=== PATIENT | male | born 1955 | race Caucasian/White ===

== ENCOUNTER 2018-01-05 17:35 | Inpatient (IN) ==
[2018-01-05] MEDS ORDERED: Nitroglycerin Drip Premix 50 MG/250 ML BOTTLE IV.CONT PRN (17:59)
[2018-01-05 18:07] LABS: Baso # (Auto) 0.1 th/mm3 (0.0-0.2); Baso % (Auto) 0.7 % (0.0-2.0); Eos # (Auto) 0.4 th/mm3 (0.0-0.4); Eos % (Auto) 3.8 % (0.0-4.0); Hematocrit 47.6 % (39.0-51.0); Hemoglobin 15.4 gm/dL (13.0-17.0); Lymph # (Auto) 2.2 th/mm3 (1.0-4.8); Lymph % (Auto) 20.6 % (9.0-44.0); Mean Corpuscular HGB Conc 32.4 % (32.0-36.0); Mean Corpuscular Hemoglobin 29.8 pg (27.0-34.0); Mean Corpuscular Volume 92.1 fL (80.0-100.0); Mean Platelet Volume 8.2 fL (7.0-11.0); Mono # (Auto) 0.9 th/mm3 (0.0-0.9); Mono % (Auto) 8.8 % (0.0-8.0); Neut # (Auto) 7.2 th/mm3 (1.8-7.7); Neut % (Auto) 66.1 % (16.0-70.0); Platelet Count 213 th/mm3 (150-450); Red Blood Count 5.17 mil/mm3 (4.50-5.90); Red Cell Distribution Width 13.7 % (11.6-17.2); White Blood Count 10.8 th/mm3 (4.0-11.0)
[2018-01-05 18:09] LABS: VBG Base Excess -4.2 mmol/L (-2-2); VBG Blood Gas Oxygen Content 15.4 Vol % (9.0-17.0); VBG PCO2 49 mmHG (44-48); VBG PH 7.27 (7.360-7.400); VBG PO2 46 mmHG (35-40)
[2018-01-05] MEDS ORDERED: Amiodarone Inj 150 MG in Dextrose 5% in Water Inj 97 ML IV.SIG ONE ×2 (18:10)
--- NOTE | 2018-01-05 18:10 | ED ---
HPI General Chief Complaint: Chest Pain Stated Complaint: chest pain [id number] Time Seen by Provider: 01/05/18 17:42 Source: patient Mode of arrival: ambulatory Limitations: no limitations History of Present Illness HPI narrative: The patient is a 62-year-old male who presents to the emergency department via private vehicle for chest pain. The patient states he was eating earlier today, approximately 1 hour prior to arrival when he developed chest pain. The chest pain was substernal, moderate to severe, initially 10/10, now 8/10, and radiating to the upper extremities bilaterally as well as the back. The patient describes the pain as gripping, pressure, and heaviness. The patient also had nausea, vomiting, diaphoresis, and lightheadedness. He denied any shortness of breath. The patient denies any known history of coronary artery disease but does have a history of end-stage renal disease on peritoneal dialysis as well as hypertension, hyperlipidemia, tobacco use, and borderline diabetes. The patient states he has never had a cardiac catheterization or stress test in the past. He denies any exertional component to his symptoms. MD complaint: chest pain Complete Quality Measures for STEMI Alert Patients STEMI Alert: Yes Onset (ago): hour(s) Time: 17:00 Duration: constant Onset: after eating Pain location: substernal Severity: severe Severity scale (1-10): 8 Quality: tightness and heaviness Pain radiation: RUE and LUE Relieving factors: nothing Exacerbating factors: nothing Context: other (After eating) Associated symptoms: nausea, vomiting and diaphoresis Treatments prior to arrival chest pain: none Related Data Allergies Allergy/AdvReac Type Severity Reaction Status Date / Time penicillin G Allergy Mild Sneezing Verified 01/05/18 17:44 tree and shrub pollen AdvReac Intermediate SNEEZING Verified 01/05/18 17:44 Review of Systems Except as stated in HPI: all other systems reviewed are negative ENT Reports dizziness Cardiovascular Reports chest pain, Reports chest pain at rest, Reports lightheadedness and Denies dyspnea Respiratory Denies dyspnea Gastrointestinal Denies abdominal pain, Reports nausea and Reports vomiting Neurologic Reports dizziness PMFSH Medical History Medical History Peritoneal dialysis catheter in place (Acute) Hypertension (Acute) Peritoneal dialysis status (Acute) Social History Social History Substance History: No History of Abuse Second Hand Smoke Exposure: No Smoking Status: Heavy tobacco smoker Tobacco Type: Cigarettes How Often Do You Have a Drink Containing Alcohol: Never Recent Travel in [facility] within the Last 8 Weeks: No Immunization History Tetanus Immunization: Unsure Hx Influenza Vaccine This Season: No Exam Narrative Exam Narrative: GENERAL: 62-year-old male who appears his stated age and appears in moderate discomfort. SKIN: Focused skin assessment warm/dry. HEAD: Atraumatic. Normocephalic. EYES: Pupils equal and round. ENT: No nasal bleeding or discharge. Mucous membranes pink and moist. NECK: Trachea midline. No JVD. CARDIOVASCULAR: Regular rate and rhythm. No murmur appreciated. RESPIRATORY: No accessory muscle use. Clear to auscultation. Breath sounds equal bilaterally. GASTROINTESTINAL: Abdomen soft, non-tender, nondistended. Peritoneal dialysis catheter in place. MUSCULOSKELETAL: No obvious deformities. No clubbing. No cyanosis. No edema. NEUROLOGICAL: Awake and alert. No obvious cranial nerve deficits. Motor grossly within normal limits. Normal speech. Nonfocal. PSYCHIATRIC: Appropriate mood and affect; insight and judgment normal. Course Reevaluation(s) Reevaluation #1: I discussed the patient with the on-call [facility] blog writer, Dr. Beyer, who agrees with transfer to [facility]. Time: 18:10 Initial Documented Vital Signs Temperature 98 F 01/05/18 17:41 Pulse Rate 60 01/05/18 17:41 Respiratory Rate 18 01/05/18 17:41 Blood Pressure 171/106 H 01/05/18 17:41 Pulse Oximetry 94 L 01/05/18 17:41 Last Documented Vital Signs Temperature 98 F 01/05/18 17:41 Pulse Rate 60 01/05/18 17:41 Respiratory Rate 18 01/05/18 17:41 Blood Pressure 171/106 H 01/05/18 17:41 Pulse Oximetry 94 L 01/05/18 17:41 Critical Care Time Critical Care Time: Yes (50) Total Critical Care Time: 50 Attestation: Aggregate critical care time was 50 minutes. Time to perform other separately billable procedures was not included in the critical care time. My time did not include minutes spent treating any other patients simultaneously or on activities that did not directly contribute to the patient's treatment. The services I provided to this patient were to treat and/or prevent clinically significant deterioration that could result in: Anoxia, hypoxia, arrhythmia, sudden , STEMI, . I provided critical care services requiring my management, as noted below: Chart data review, documentation time, medication orders and management, vital sign assessments/reviewing monitor data, ordering and reviewing lab tests, ordering and interpreting/reviewing x-rays and diagnostic studies, care of the patient and discussion of the patient with the admitting physicians. Medical Decision Making MDM Narrative Medical decision making narrative: IV was established, labs are drawn and sent, the patient was placed on cardiac telemetry monitoring and continuous pulse oximetry monitoring. EKG was ordered and interpreted. Always have a discussion with the patient he suddenly went unconscious, when I looked at the telemetry monitoring the patient was in ventricular tachycardia. Immediate CPR was instituted, 2 large-bore IVs were established, and CPR was performed for 2 minutes. The patient was then defibrillated at 200 J and CPR was started once again. The patient then awakened after defibrillation and CPR. 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 Repeat EKG was performed which now revealed ST elevations in lead III and aVF with significant depressions in lead V2 and V3, EKG was inverted, it appears to have significant ST elevations in V2 and V3, possibly posterior NE from RCA posterior dominant system. 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 I discussed the patient with the on-call [facility] blog writer, Dr. Beyer, who accepts the patient in transfer. The patient was transferred to [facility] emergently via EMS to go straight to cardiac catheterization room. I discussed the findings with the patient and his significant other, Linda, at bedside and in the conference room. Differential Diagnosis Differential Diagnosis: Differential diagnosis includes acute coronary syndrome , STEMI, arrhythmia, ventricular tachycardia, ventricular fibrillation, cardia myopathy, hypokalemia, hyperkalemia, hypomagnesemia, O abnormality. Lab Data Result diagrams: 01/05/18 17:45 01/05/18 17:45 Lab Results 01/05/18 01/05/18 01/05/18 Range/Units 17:45 17:45 17:45 CBC w Diff Auto diff final WBC 10.8 (4.0-11.0) th/mm3 RBC 5.17 (4.50-5.90) mil/mm3 Hgb 15.4 (13.0-17.0) gm/dL Hct 47.6 (39.0-51.0) % MCV 92.1 (80.0-100.0) fL MCH 29.8 (27.0-34.0) pg MCHC 32.4 (32.0-36.0) % RDW 13.7 (11.6-17.2) % Plt Count 213 (150-450) th/mm3 MPV 8.2 (7.0-11.0) fL Neut % (Auto) 66.1 (16.0-70.0) % Lymph % (Auto) 20.6 (9.0-44.0) % [place] % (Auto) 8.8 H (0.0-8.0) % Eos % (Auto) 3.8 (0.0-4.0) % Baso % (Auto) 0.7 (0.0-2.0) % Neut # (Auto) 7.2 (1.8-7.7) th/mm3 Lymph # (Auto) 2.2 (1.0-4.8) th/mm3 [place] # (Auto) 0.9 (0.0-0.9) th/mm3 Eos # (Auto) 0.4 (0.0-0.4) th/mm3 Baso # (Auto) 0.1 (0.0-0.2) th/mm3 WBC Differential . Differential Comment . PT 10.0 (9.8-11.6) sec INR 1.0 Ratio APTT 27.7 (24.3-30.1) sec Puncture Site Patient Temperature VBG pH (7.360-7.400) VBG pCO2 (44-48) mmHG VBG pO2 (35-40) mmHG VBG HCO3 (22-26) mmol/L VBG O2 Saturation (70-76) % VBG O2 Content (9.0-17.0) Vol % VBG Base Excess (-2-2) mmol/L VBG Carboxyhemoglobin (0-4) % VBG Methemoglobin (0-2) % Hemoglobin (12.0-16.0) G/DL O2 Delivery Device Inspired O2 % Critical Value Sodium 137 (136-145) meq/L Potassium 3.5 (3.5-5.1) meq/L Chloride 101 (98-107) meq/L Carbon Dioxide 24.2 (21.0-32.0) meq/L Anion Gap 12 (5-15) meq/L BUN 74 H (7-18) mg/dL Creatinine 9.90 H (0.60-1.30) mg/dL Estimated GFR 5 L (>89) mL/min Random Glucose 92 (74-106) mg/dL Calcium 9.7 (8.5-10.1) mg/dL Phosphorus 3.8 (2.5-4.9) mg/dL Magnesium 2.5 (1.5-2.5) mg/dL Total Bilirubin 0.4 (0.2-1.0) mg/dL AST 14 L (15-37) U/L ALT 24 (12-78) U/L Alkaline Phosphatase 68 (45-117) U/L Total Creatine Kinase 202 (39-308) U/L Troponin I 0.10 H (0.02-0.05) ng/mL Total Protein 8.1 (6.4-8.2) g/dL Albumin 3.6 (3.4-5.0) g/dL 01/05/18 Range/Units 18:05 CBC w Diff WBC (4.0-11.0) th/mm3 RBC (4.50-5.90) mil/mm3 Hgb (13.0-17.0) gm/dL Hct (39.0-51.0) % MCV (80.0-100.0) fL MCH (27.0-34.0) pg MCHC (32.0-36.0) % RDW (11.6-17.2) % Plt Count (150-450) th/mm3 MPV (7.0-11.0) fL Neut % (Auto) (16.0-70.0) % Lymph % (Auto) (9.0-44.0) % [place] % (Auto) (0.0-8.0) % Eos % (Auto) (0.0-4.0) % Baso % (Auto) (0.0-2.0) % Neut # (Auto) (1.8-7.7) th/mm3 Lymph # (Auto) (1.0-4.8) th/mm3 [place] # (Auto) (0.0-0.9) th/mm3 Eos # (Auto) (0.0-0.4) th/mm3 Baso # (Auto) (0.0-0.2) th/mm3 WBC Differential Differential Comment PT (9.8-11.6) sec INR Ratio APTT (24.3-30.1) sec Puncture Site Ac Patient Temperature 98.6 VBG pH 7.27 L* (7.360-7.400) VBG pCO2 49 H (44-48) mmHG VBG pO2 46 H (35-40) mmHG VBG HCO3 22 (22-26) mmol/L VBG O2 Saturation 74 (70-76) % VBG O2 Content 15.4 (9.0-17.0) Vol % VBG Base Excess -4.2 L (-2-2) mmol/L VBG Carboxyhemoglobin 2.4 (0-4) % VBG Methemoglobin 1.5 (0-2) % Hemoglobin 14.9 (12.0-16.0) G/DL O2 Delivery Device Non rebreather Inspired O2 100 % Critical Value Yes Sodium (136-145) meq/L Potassium (3.5-5.1) meq/L Chloride (98-107) meq/L Carbon Dioxide (21.0-32.0) meq/L Anion Gap (5-15) meq/L BUN (7-18) mg/dL Creatinine (0.60-1.30) mg/dL Estimated GFR (>89) mL/min Random Glucose (74-106) mg/dL Calcium (8.5-10.1) mg/dL Phosphorus (2.5-4.9) mg/dL Magnesium (1.5-2.5) mg/dL Total Bilirubin (0.2-1.0) mg/dL AST (15-37) U/L ALT (12-78) U/L Alkaline Phosphatase (45-117) U/L Total Creatine Kinase (39-308) U/L Troponin I (0.02-0.05) ng/mL Total Protein (6.4-8.2) g/dL Albumin (3.4-5.0) g/dL Imaging Data Attestation: I personally reviewed and interpreted this imaging study as follows : My impression: No acute cardiopulmonary disease. ECG Data EKG Prior to Arrival: No Attestation: I personally reviewed and interpreted this ECG as follows: Interpretation: EKG #1 reveals normal sinus rhythm with a rate of 63. ND slightly prolonged at 240 ms. T-wave changes noted in lead I and aVL. EKG #[address] elevations in lead III and aVF with marked depression of V2 and V3 and inverted T waves in 1 and aVL. When EKG is inverted, it appears that V2 and V3 are elevated, possibly posterior NE, RCA dominant system. Discharge Plan Discharge Disposition Patient Disposition: 30 Still Patient Discharge Condition Condition: Serious Discharge Details Diagnosis: ST elevation myocardial infarction (STEMI), Arrhythmia, ventricular Physicians Team ED Provider: Yousif Seymour Primary Care Provider: UNKNOWN, Discharge Instructions Patient Printed Instructions: Chest Pain (ED) Status ED Status: With Doctor
[2018-01-05 18:14] LABS: Chloride 101 meq/L (98-107); Potassium 3.5 meq/L (3.5-5.1); Sodium 137 meq/L (136-145)
[2018-01-05] MEDS ORDERED: Amiodarone Inj 450 MG in Sodium Chlor 0.9% Inj 241 ML IV.CONT PRN (18:15)
[2018-01-05 18:18] LABS: Albumin 3.6 g/dL (3.4-5.0); Anion Gap 12 meq/L (5-15); Blood Urea Nitrogen 74 mg/dL (7-18); Calcium 9.7 mg/dL (8.5-10.1); Carbon Dioxide 24.2 meq/L (21.0-32.0); Glucose,Random 92 mg/dL (74-106); Magnesium 2.5 mg/dL (1.5-2.5)
[2018-01-05] MEDS ORDERED: Heparin 10,000 UNITS/10 ML Vial (for IV use) IV.PUSH STA (18:18)
[2018-01-05 18:20] LABS: Activated Partial Thrombo Time 27.7 sec (24.3-30.1)
[2018-01-05 18:21] LABS: Alanine Aminotransferase 24 U/L (12-78); Aspartate Aminotransferase 14 U/L (15-37); Glomerular Filtration Rate 5 mL/min (>89); Phosphorus 3.8 mg/dL (2.5-4.9)
[2018-01-05 18:23] LABS: Total Protein 8.1 g/dL (6.4-8.2)
[2018-01-05 18:24] LABS: Alkaline Phosphatase 68 U/L (45-117); Creatine Kinase 202 U/L (39-308)
[2018-01-05] MEDS ORDERED: Heparin 10,000 UNITS/10 ML Vial (for IV use) ONE (18:35)
[2018-01-05] MEDS ORDERED: Heparin/NS PF Inj 1,000 ML ONE (18:35)
[2018-01-05 18:36] LABS: Creatine Kinase MB 6.4 ng/mL (0.5-3.6)
[2018-01-05] MEDS ORDERED: fentaNYL Citrate Inj 100 MCG/2 ML Ampul ONE (18:42)
--- NOTE | 2018-01-05 18:46 | XR ---
EXAM DATE: 01/05/2018 6:19 PM EDT AGE/SEX: 62 years / Male INDICATIONS: Stemi alert CLINICAL DATA: This is the patient's initial encounter. Patient reports that signs and symptoms have been present for 1 day and indicates a pain score of 10/10. MEDICAL/SURGICAL HISTORY: None. None. COMPARISON: [facility], CHEST SINGLE AP, 11/11/2014. . FINDINGS: A single AP view of the chest demonstrates the lungs to be symmetrically aerated without evidence of mass, infiltrate or effusion. Mild basilar atelectasis. The cardiomediastinal contours are mildly pro minent. Osseous structures are intact. CONCLUSION: Mild basilar atelectasis. Heart size mildly prominent. No effusion or pneumothorax. Electronically signed by: Ladarius Haile MD 01/05/2018 6:45 PM EDT
[2018-01-05] MEDS ORDERED: Bisacodyl 10 MG Supp RECTAL PRN ×2 (20:31→21:00)
--- NOTE | 2018-01-05 20:36 | CATHPROC ---
[employer] HIS Report Study Information Study Number Admission Scheduled Start Study Start [id number] Jan 05 2018 5:35PM 01/05/2018 Jan 05 2018 6:52PM [place] Service Cardiac Catheterization Admit Source Facility Department Emergency department [facility] Physician and Clinical Staff Initial Darren Rose Insulation Board Coater Operator Boy Brennan,RN Insulation Board Coater Operator Karyn Kowalski,RT(R) (BS) Insulation Board Coater Operator Harriet Chowdhury RN Other Lawler, Barbara, RN Recorder Anali Contreras BSN Scrub Lukas Rowley RCIS(BS) Procedures Performed Procedure Location (Site) Vessel Name Coronary Angiograms LCA Left Coronary Coronary Angiograms RCA Right Coronary Drug Eluting Inflatio CIRC Prox CIRC Drug Eluting Inflatio LAD Prox Left Coronary L Heart Cath PTCA CIRC Prox CIRC PTCA LAD Prox Left Coronary Wire insertion Radial (right) Radial Art. Equipment Time Bench Assembler Operator Description Size Mfg Part Number Used/Scraped COPILOT VALVE, BLEEDBACK [id number] 19:13 [employer] Used CONTROL *[id number] WIRE, BALANCE MIDDLEWEIGHT [id number] 19:19 [employer] 190CM Used 190CM *[id number] TRANSDUCER, TRUWAVE [id number] 19:02 BYERS NUÑEZ * Used W/STOCKCOCK *[id number] *[id number] 19:02 [employer] BLANKET,WARM AIR CCL * Used *[id number] 19:02 [employer] PACK, CCL CUSTOM * Used *[id number] 19:02 [employer] SUPPORT, ARTERIAL ADULT [id number] *[id number] Used [id number] 19:20 [employer] BALLOON, 2.0 X 15MM EUPHORA 15MM Used *[id number] BALLOON, 2.5 X 12MM NC [id number] 19:41 MEDTR[employer] 12MM Used EUPHORA *[id number] 19:24 [employer] BALLOON, 2.5 X 15MM EUPHORA 15MM Used *[id number] BALLOON, 2.75 X 20MM NC [id number] 19:37 MEDTRONIC 20MM Used EUPHORA *[id number] BALLOON, 3.25 X 15MM NC [id number] 19:59 [employer]IC 15MM Used EUPHORA *[id number] 19:03 [employer]IC JL 3.5 DXTERITY CATHETER FR 5 Used *[id number] 19:03 [employer]TR[employer]IC JR 4.0 DXTERITY CATHETER FR 5 Used *[id number] 19:34 [employer]TR[employer]IC STENT, 2.5 34MM CORDELIA 2.5 34MM Used *[id number] 19:32 MEDTR[employer]IC STENT, 2.5 38MM CORDELIA 2.5 38MM [id number] Used [id number] 19:53 [employer]IC STENT, 3.0 22MM CORDELIA 3.0 22MM Used *[id number] 19:13 Proficiency 30 JINNY INDEFLATOR Used *[id number] BAND, RADIAL COMPRESSION TR [id number] 20:13 Proficiency 24CM Used SHORT 24 *[id number] 19:02 Proficiency WIRE, EXCHANGE 260CM 3MMJ 260CM Used *[id number] 19:02 NAMIC MANIFOLD, 4 PORT * Used *[id number] 19:02 NYCOMED OMNIPAQUE, 350 MG, 150ML 150ML [id number] Used 20:08 NYCOMED OMNIPAQUE, 350 MG, 150ML 150ML [id number] Used SHEATH, FR6 TRANSRADIAL [id number] 19:02 [employer]oK[employer] MEDICAL FR 6 Used SLENDER 10CM *[id number] Equipment Model, Serial, Lot Number and Expiration Data Description Model Number Serial Number Lot Number Expiration Date BALLOON, 2.5 X 12MM [place] [id number] 07-14-2019 EUPHORA STENT, 2.5 34MM CORDELIA [id number] 08-08-2019 STENT, 2.5 38MM CORDELIA [id number] 09-03-2019 STENT, 3.0 22MM CORDELIA [id number] 07-03-2019 History: Current Medications Medication Dosage/Unit Route Frequency Last Date/Time Taken ASA 405 mg History: Allergies Allergy Reaction penicillin G Sneezing tree and shrub pollen SNEEZING History: Risk Factors Family History of Hypertension Dyslipidemia Previous MO Previous Heart Failure Premature CAD Yes Yes Yes No No Prior Valve Prior PCI Prior CABG Surgery No No No Cerebrovascular Peripheral Artery Chronic Lung On Dialysis Diabetes Disease Disease Disease Yes Yes No Yes No History: Symptoms/Diagnosis Selection Items Chest pain History: Other Current Smoker Method Packs a Day Years Used Pack Years Yes Cigarettes 1 20 20 Labs Hgb (g/dl) Hct (%) WBC (l/cumm) Platelets (thousands) 11.60-17.00 35.00-51.00 4.00-11.00 150.00-450.00 15.4 47.6 10.8 213 Glucose (mg/dl) BUN (mg/dl) Creatinine (mg/dl) BUN:Creatinine (1:x) 74.00-106.00 7.00-18.00 0.50-1.30 10.00-20.00 97 14 9.9 1.4 Na (meq/l) K (meq/l) 136.00-145.00 3.50-5.10 137 3.5 INR (PTT:PT) 0.90-1.10 1 Troponin I (ng/ml) CPK (u/l) CPK-MB (ng/ML) 0.02-0.05 26.00-308.00 0.50-3.60 0.1 202 6.4 Medication Medication Total Dose (Bolus/Oral) Medication Total Dosage/Unit 1% XYLOCAINE 5 mL BRILINTA 180 mg FENTANYL 100 mcg HEPARIN 5000 units NTG (IC) 350 mcg RADIAL COCKTAIL 5 mL (Bolus) VERSED 4 mg Medications (Bolus/Oral) Medication Time Given Dosage/Unit Administered By Reason VERSED 01/05/2018 6:58:22 PM 2 mg Anu, Boy 2 mg VERSED given by Boy Brennan, WIL via Peripheral IV. Ordered by Darren Beyer. FENTANYL 01/05/2018 6:59:27 PM 50 mcg Anu, Boy 50 mcg FENTANYL given by Boy Brennan RN via Peripheral IV. Ordered by Darren Beyer. 1% XYLOCAINE 01/05/2018 6:59:36 PM 5 mL Darren Beyer 5 mL 1% XYLOCAINE given in lab by Darren Beyer in Right Radial via Subcutaneous. Ordered by Jourdan Beyer. RADIAL COCKTAIL 01/05/2018 7:01:12 PM 5 mL (Bolus) Darren Beyer 5 mL (Bolus) RADIAL COCKTAIL given in lab by Darren Beyer via Radial. Using [Solution Name]. Ordered by Darren Beyer. Reason: Ntg 200mcg Verapamil 2.5mg VERSED 01/05/2018 7:02:34 PM 2 mg Anu, Boy 2 mg VERSED given by Boy Brennan RN via Peripheral IV. Ordered by Darren Beyer. FENTANYL 01/05/2018 7:03:56 PM 50 mcg Anu, Boy 50 mcg FENTANYL given by Boy Brennan RN via Peripheral IV. Ordered by Darren Beyer. HEPARIN 01/05/2018 7:04:11 PM 5000 units Boy Brennan 5000 units HEPARIN given in lab by Boy Brennan RN via Peripheral IV. Ordered by Darren Beyer. NTG (IC) 01/05/2018 7:39:26 PM 150 mcg Darren Beyer 150 mcg NTG (IC) given in lab by Darren Beyer via Intra-coronary. Ordered by Darren Beyer. NTG (IC) 01/05/2018 8:05:01 PM 200 mcg Darren Beyer 200 mcg NTG (IC) given in lab by Darren Beyer via Intra-coronary. Ordered by Darren Beyer. BRILINTA 01/05/2018 8:15:55 PM 180 mg Anu, Boy 180 mg BRILINTA given in lab by Boy Brennan RN via Oral. Ordered by Darren Beyer. Medication (Drip) Medication Time Given Dosage/Unit Concentration/Unit Diluent (ml) Solution DEVON-SYNEPHRINE 01/05/2018 7:31:42 PM 50 mcg 50 mcg DEVON-SYNEPHRINE given in lab by Harriet Chowdhury RN via Peripheral IV. Ordered by Darren Beyer. Initial Case Assessment Cardiovascular HR Rhythm NIBP Chest Pain 108 st 123/88 8 Edema Present Skin color Skin None Normal Warm Dry Circulatory - Right Pulses Dorsalis Pedis Femoral Radial 2 2 2 Scale (0,1,2,3,4,d) Scale (0,1,2,3,4,d) Circulatory - Lower Extremities Color Lower Right Color Lower Left Normal Normal Neurological State Oriented to time-place- Alert Moves all extremities person Respiration - General Respiration Rate SpO2 (%) O2 (lpm) (B/min) 16 99 15 Final Case Assessment Cardiovascular HR Rhythm NIBP 64 SR 124/62 Edema Present Skin color Skin None Normal Warm Dry Circulatory - Right Pulses Dorsalis Pedis Femoral Radial 2 2 2 Scale (0,1,2,3,4,d) Scale (0,1,2,3,4,d) Circulatory - Lower Extremities Color Lower Right Color Lower Left Normal Normal Neurological State Oriented to time-place- Lethargic Moves all extremities person Respiration - General Respiration Rate SpO2 (%) (B/min) 14 95 Chronological Log Time Study Chronological Log 18:40:30 MD arrived. 18:48:50 Patient arrived via Bed. 18:51:55 Patient Name, D.O.B, / Armband Verified By R.N. 18:51:57 Consent signed by the physician and the patient and verified by the [facility] staff. 18:52:01 Patient has been NPO for More than 6Hrs. 18:52:02 Skin Breakdown- none per patient 18:52:09 Disposable Defibrillator Pads Placed On Patient. 18:52:09 Andi Prominences Protected Vitals capture started with the following parameters, Patient=Adult, Interval=5 min, Initial Pr qyauzx=953 mmHg, 18:55:17 Deflation Rate=5 mmHg, Cuff placed on Left Arm 18:56:15 AQ=006 bpm, JGGU=272/88 mmhg, SpO2=99.0 %, Resp=14 B/min, Pain=8, Praful=10, Lin=2 18:56:46 A # 20 IV was noted in the Forearm (right). Grade = 0 18:56:54 A # 20 IV was noted in the Antecubital (left). Grade = 0 NS at KVO 18:57:04 History and physical on the chart or being dictated. Assessment: Initial Case, EY=940 BPM, Rhythm=st, NYHF=793/88 mmhg, Chest Pain=8, Edema=None, Co dulce=Normal, Skin = Warm, Dry Right Pulses: Krzysztof Ped=2, Femoral=2, Radial=2 18:57:06 Lower Right Extremities: Color=Normal Lower Left Extremities: Color=Normal Neurological: State=Alert, Ox3, ALVAREZ Respiration: Resp=16 B/min, SpO2=99 %, O2=15 lpm 18:57:37 Right Radial and groin(s) prepped with 2% chlorhexidine, and draped after a 3 min. waiting time. 18:57:50 Reference ECG taken 18:58:22 2 mg VERSED given by Boy Brennan RN via Peripheral IV. Ordered by Darren Beyer. Time Out. Correct patient, correct procedure, correct physician, labs, allergies, and equipment verified with civil laboratory technician 18:58:57 team present. Fire risk assesment completed (see hard stop sheet for coding). Time Out Conc urred by MD and individual staff in procedure. 18:59:17 Case Start 18:59:27 50 mcg FENTANYL given by Boy Brennan RN via Peripheral IV. Ordered by Darren Beyer. 18:59:31 Case Start 18:59:36 5 mL 1% XYLOCAINE given in lab by Darren Beyer in Right Radial via Subcutaneous. Ordered by Darren Beyer. 19:00:40 Access site was Right Radial Artery . 19:00:45 Pressure channel 1 zeroed. 5 mL (Bolus) RADIAL COCKTAIL given in lab by Darren Beyer via Radial. Using [Solution Name]. Or dered by Darren Beyer. 19:01:12 Reason: Ntg 200mcg Verapamil 2.5mg 19:01:20 HR=83 bpm, OJWU=354/97 mmhg, SpO2=98.0 %, Resp=15 B/min, Pain=8, Praful=10, Lin=2 19:02:34 2 mg VERSED given by Boy Brennan RN via Peripheral IV. Ordered by Darren Beyer. A JR 4.0 DXTERITY CATHETER FR 5 was advanced over a wire. OMNIPAQUE, 350 MG, 150ML 150ML was us ed for 19:02:56 injections. 19:03:56 50 mcg FENTANYL given by Boy Brennan RN via Peripheral IV. Ordered by Darren Beyer. 19:04:11 5000 units HEPARIN given in lab by Boy Brennan RN via Peripheral IV. Ordered by Jourdan Beyer. Recorded Pressure: Ao, HR=82, Condition=Condition 1 19:05:26 (Aorta) Ao 123/73/98 19:05:32 The RCA was injected and visualized at various angles. OMNIPAQUE, 350 MG, 150ML 150ML used . 19:05:56 HR=73 bpm, WLML=755/73 mmhg, SpO2=89 %, Resp=14 B/min After removing the current catheter a JL 3.5 DXTERITY CATHETER FR 5 was advanced over a WIRE, E XCHANGE 260CM 19:07:46 3MMJ 260CM. 19:10:17 The LCA was injected and visualized at various angles. OMNIPAQUE, 350 MG, 150ML 150ML used . 19:11:01 HR=71 bpm, IHWM=761/60 mmhg, SpO2=89.0 %, Resp=14 B/min After removing the current catheter a XB 3.5 GUIDE CATHETER FR 7 was advanced over a WIRE, EXCH DEV 260CM 19:11:44 3MMJ 260CM. 19:15:58 HR=73 bpm, EZOL=181/62 mmhg, SpO2=92.0 %, Resp=14 B/min 19:18:13 A WIRE, BALANCE MIDDLEWEIGHT 190CM 190CM was inserted via Radial (right). 19:19:22 Interventional wire has crossed the lesion 19:20:57 HR=75 bpm, YOQF=420/58 mmhg, SpO2=93.0 %, Resp=13 B/min A BALLOON, 2.0 X 15MM EUPHORA 15MM was inserted over WIRE, BALANCE MIDDLEWEIGHT 190CM 190CM via the 19:21:07 Radial (right). A BALLOON, 2.0 X 15MM EUPHORA 15MM over a WIRE, BALANCE MIDDLEWEIGHT 190CM 190CM in the CIRC Pr ox was 19:21:08 inflated using a 30 JINNY INDEFLATOR at 12 jinny for 13 sec. A BALLOON, 2.0 X 15MM EUPHORA 15MM over a WIRE, BALANCE MIDDLEWEIGHT 190CM 190CM in the CIRC Pr ox was 19:21:40 inflated using a 30 JINNY INDEFLATOR at 14 jinny for 10 sec. A BALLOON, 2.0 X 15MM EUPHORA 15MM over a WIRE, BALANCE MIDDLEWEIGHT 190CM 190CM in the CIRC Pr ox was 19:23:42 inflated using a 30 JINNY INDEFLATOR at 12 jinny for 15 sec. 19:24:09 Balloon Removed. A BALLOON, 2.5 X 15MM EUPHORA 15MM was inserted over WIRE, BALANCE MIDDLEWEIGHT 190CM 190CM via the 19:25:22 Radial (right). A BALLOON, 2.5 X 15MM EUPHORA 15MM over a WIRE, BALANCE MIDDLEWEIGHT 190CM 190CM in the CIRC Pr ox was 19:25:53 inflated using a 30 JINNY INDEFLATOR at 12 jinny for 15 sec. 19:25:56 HR=64 bpm, DLCD=339/46 mmhg, SpO2=93.0 %, Resp=13 B/min A BALLOON, 2.5 X 15MM EUPHORA 15MM over a WIRE, BALANCE MIDDLEWEIGHT 190CM 190CM in the CIRC Pr ox was 19:26:29 inflated using a 30 JINNY INDEFLATOR at 12 jinny for 10 sec. A BALLOON, 2.5 X 15MM EUPHORA 15MM over a WIRE, BALANCE MIDDLEWEIGHT 190CM 190CM in the CIRC Pr ox was 19:27:18 inflated using a 30 JINNY INDEFLATOR at 12 jinny for 10 sec. 19:30:43 Balloon Removed. A STENT, 2.5 38MM CORDELIA 2.5 38MM was advanced through a XB 3.5 GUIDE CATHETER FR 7 over a WIRE, BALANCE 19:30:51 MIDDLEWEIGHT 190CM 190CM. 19:31:34 HR=60 bpm, TLXM=338/60 mmhg, SpO2=94.0 %, Resp=15 B/min 19:31:42 50 mcg DEVON-SYNEPHRINE given in lab by Harriet Chowdhury RN via Peripheral IV. Ordered by Darren Perera. 19:33:19 Stent not deployed. Stent removed and intact. A STENT, 2.5 34MM CORDELIA 2.5 34MM was advanced through a XB 3.5 GUIDE CATHETER FR 7 over a WIRE, BALANCE 19:33:55 MIDDLEWEIGHT 190CM 190CM. A STENT, 2.5 34MM CORDELIA 2.5 34MM was deployed using a 30 JINNY INDEFLATOR at 14 atmospheres for 30 seconds in 19:34:49 the CIRC Prox. 19:35:34 Delivery device removed 19:35:59 HR=55 bpm, VFCC=531/54 mmhg, SpO2=95.0 %, Resp=15 B/min A BALLOON, 2.75 X 20MM NC EUPHORA 20MM was inserted over WIRE, BALANCE MIDDLEWEIGHT 190CM 190CM via 19:36:11 the Radial (right). A BALLOON, 2.75 X 20MM NC EUPHORA 20MM over a WIRE, BALANCE MIDDLEWEIGHT 190CM 190CM in the CIR C 19:37:48 Prox was inflated using a 30 JINNY INDEFLATOR at 20 jinny for 15 sec. 19:39:26 150 mcg NTG (IC) given in lab by Darren Beyer via Intra-coronary. Ordered by Darren Beyer. 19:40:43 Balloon Removed. 19:41:02 HR=63 bpm, TVXA=858/43 mmhg, SpO2=96.0 %, Resp=14 B/min A BALLOON, 2.5 X 12MM NC EUPHORA 12MM was inserted over WIRE, BALANCE MIDDLEWEIGHT 190CM 190CM via 19:41:47 the Radial (right). A BALLOON, 2.5 X 12MM NC EUPHORA 12MM over a WIRE, BALANCE MIDDLEWEIGHT 190CM 190CM in the CIRC Prox 19:42:18 was inflated using a 30 JINNY INDEFLATOR at 20 jinny for 15 sec. 19:44:47 Balloon Removed. 19:46:32 HR=66 bpm, KBSL=533/49 mmhg, SpO2=95.0 %, Resp=14 B/min 19:47:44 WIRE REPOSITIONED INTO LAD A BALLOON, 2.5 X 15MM EUPHORA 15MM was inserted over WIRE, BALANCE MIDDLEWEIGHT 190CM 190CM via the 19:48:31 Radial (right). A BALLOON, 2.5 X 15MM EUPHORA 15MM over a WIRE, BALANCE MIDDLEWEIGHT 190CM 190CM in the LAD Pro x was 19:49:59 inflated using a 30 JINNY INDEFLATOR at 14 jinny for 20 sec. 19:50:58 HR=60 bpm, DPTR=454/55 mmhg, SpO2=98.0 %, Resp=13 B/min A STENT, 3.0 22MM CORDELIA 3.0 22MM was advanced through a XB 3.5 GUIDE CATHETER FR 7 over a WIRE, BALANCE 19:54:47 MIDDLEWEIGHT 190CM 190CM. 19:56:01 HR=64 bpm, GGAN=444/53 mmhg, SpO2=99.0 %, Resp=13 B/min A STENT, 3.0 22MM CORDELIA 3.0 22MM was deployed using a 30 JINNY INDEFLATOR at 10 atmospheres for 20 seconds in 19:57:13 the LAD Prox. 19:59:03 Delivery device removed A BALLOON, 3.25 X 15MM NC EUPHORA 15MM was inserted over WIRE, BALANCE MIDDLEWEIGHT 190CM 190CM via 20:00:28 the Radial (right). A BALLOON, 3.25 X 15MM NC EUPHORA 15MM over a WIRE, BALANCE MIDDLEWEIGHT 190CM 190CM in the LAD Prox 20:00:44 was inflated using a 30 JINNY INDEFLATOR at 20 jinny for 20 sec. 20:01:00 HR=67 bpm, XPKT=173/73 mmhg, SpO2=95.0 %, Resp=16 B/min A BALLOON, 3.25 X 15MM NC EUPHORA 15MM over a WIRE, BALANCE MIDDLEWEIGHT 190CM 190CM in the LAD Prox 20:01:30 was inflated using a 30 JINNY INDEFLATOR at 20 jinny for 10 sec. 20:02:16 Balloon Removed. 20:03:20 Wire removed 20:05:01 200 mcg NTG (IC) given in lab by Darren Beyer via Intra-coronary. Ordered by Darren Beyer. 20:06:03 HR=66 bpm, QXWQ=733/62 mmhg, SpO2=98.0 %, Resp=20 B/min 20:07:17 Catheter was removed 20:08:28 Case End (Physician broke scrub) Assessment: Final Case, HR=64 BPM, Rhythm=SR, SJTS=483/62 mmhg, Edema=None, Color=Normal, Skin = Warm, Dry Right Pulses: Krzysztof Ped=2, Femoral=2, Radial=2 20:08:59 Lower Right Extremities: Color=Normal Lower Left Extremities: Color=Normal Neurological: State=Lethargic, Ox3, ALVAREZ Respiration: Resp=14 B/min, SpO2=95 % 20:09:46 No case complications noted. 20:09:47 Cine recording checked. 20:11:36 Implantable Device card placed in patient's chart. 20:11:42 A Left Heart Cath was performed. 20:11:43 Patient moved to stretcher 20:11:53 HR=65 bpm, FAJO=813/71 mmhg, SpO2=95.0 %, Resp=16 B/min 20:11:58 Bedside Report will be given. Radial Compression Device Used. 17 mLs of air placed in BAND, RADIAL COMPRESSION TR SHORT 24 2 4CM. Affected 20:12:49 hand 96 % O2 saturation. 20:15:55 180 mg BRILINTA given in lab by Boy Brennan, RN via Oral. Ordered by Darren Beyer. 20:16:05 HR=62 bpm, GDOF=214/65 mmhg, SpO2=97.0 %, Resp=11 B/min End Study - Contrast Media Used In Study Contrast Total Opened (mL) Total Used (mL) Total Wasted (mL) Omnipaque 235 235 0 End Study - Maximum Contrast Load Max Contrast Load (mL) 45.2 End Study - Radiation Exposure Fluoro Time (minutes) 20.2 End Study - Patient Disposition Complications Transferred To No Critical Care Bed
[2018-01-05] MEDS ORDERED: Senna/Docusate Sodium 8.6/50 MG Tablet PO SCH (21:00)
[2018-01-05] MEDS ORDERED: Famotidine 20 MG Tablet PO SCH (21:00)
[2018-01-05] MEDS: Famotidine 20 MG Tablet PO SCH (21:31)
[2018-01-05] MEDS: Senna/Docusate Sodium 8.6/50 MG Tablet PO SCH (21:38)
--- NOTE | 2018-01-05 22:53 | P.CONCC ---
History of Present Illness Primary Care Provider: UNKNOWN Family Provider: UNKNOWN History of Present Illness: 62-year-old male who presents to the emergency department via private vehicle for chest pain. The patient states he was eating earlier today, approximately 1 hour prior to arrival when he developed chest pain. The chest pain was substernal, moderate to severe, initially 10/10, then 8/10, and radiating to the upper extremities bilaterally as well as the back. The patient describes the pain as gripping, pressure, and heaviness. The patient also had nausea, vomiting, diaphoresis, and lightheadedness. He denied any shortness of breath. The patient denies any known history of coronary artery disease but does have a history of end-stage renal disease on peritoneal dialysis as well as hypertension, hyperlipidemia, tobacco use, and borderline diabetes. The patient states he has never had a cardiac catheterization or stress test in the past. He denies any exertional component to his symptoms. In the emergency department he suffered V. fib cardiac arrest and was successfully resuscitated with delivering of shock and amiodarone. Due to EKG changes suggestive ST elevations he was immediately taken to cardiac catheterization lab where he was found to have a critical LAD and circumflex occlusion that was treated with a stent. Postprocedure he is admitted to CVICU. Review of Systems All other systems reviewed negative except as stated in HPI PMFSH - History History Provided By: Patient - Medical History Medical History: Medical History (Last Updated 01/05/18 @ 22:55 by Víctor Ovalles MD) Peritoneal dialysis catheter in place (Acute) Hypertension (Acute) Peritoneal dialysis status (Acute) Diabetes mellitus - Tobacco History Second Hand Smoke Exposure: No Tobacco Use In Past 30 Days: Yes Smoking Status: Heavy tobacco smoker Tobacco Type: Cigarettes - Alcohol History How Often Do You Have a Drink Containing Alcohol: Never - Substance Use History Substance History: No History of Abuse - Travel History Recent Travel in the [facility] [place] Within the Last 8 Weeks: No - Immunization History Tetanus Immunization: Unsure Hx Influenza Vaccine This Season: No Medications and Allergies Active Medications: Active Medications Al Hydroxide/Mg Hydroxide (Milk Of oHma Zamora) 30 ml PO Q12H PRN PRN Reason: Mild Constipation Aspirin (Aspirin Chew) 81 mg PO DAILY ARMANDO Atorvastatin Calcium (Lipitor) 40 mg PO HS [facility] Last Admin: 01/05/18 21:31 Dose: 40 mg Bisacodyl (Dulcolax Supp) 10 mg RECTAL DAILY PRN PRN Reason: SEVERE CONSITIPATION Chlorhexidine Gluconate (Chlorhexidine 2% Cloth) 3 pack TOPICAL DAILY@0400 [facility] Stop: 01/11/18 03:59 Chlorhexidine Gluconate (Chlorhexidine 2% Cloth) 3 pack TOPICAL DAILY@0400 PRN PRN Reason: Extra cloth needed Stop: 01/11/18 03:59 Famotidine (Pepcid) 20 mg PO BID [facility] Last Admin: 01/05/18 21:31 Dose: 20 mg Nitroglycerin/Dextrose (Nitroglycerin Drip Premix) 50 mg in 250 mls @ 0 mls/hr IV.CONT TITRATE PRN; Protocol PRN Reason: Per Protocol Amiodarone HCl 450 mg/ Sodium (Chloride) 250 mls @ 33.33 mls/hr IV.CONT TITRATE PRN; Protocol PRN Reason: Per Protocol Lactulose (Lactulose Liq) 30 ml PO DAILY PRN PRN Reason: SEVERE CONSITIPATION Senna/Docusate Sodium (Arpita-Colace) 1 tab PO BID [facility] Last Admin: 01/05/18 21:38 Dose: Not Given Sennosides (Senokot) 17.2 mg PO Q12H PRN PRN Reason: Moderate Constipation Sodium Chloride (Ns Flush) 2 ml IV.FLUSH UNSCH PRN PRN Reason: FLUSH AFTER USING IV ACCESS Sodium Chloride (Ns Flush) 2 ml IV.FLUSH BID [facility] Last Admin: 01/05/18 21:31 Dose: 2 ml Sodium Chloride (Ns Flush) 2 ml IV.FLUSH PRN PRN PRN Reason: FLUSH AFTER USING IV ACCESS Sodium Chloride (Ns Flush) 2 ml IV.FLUSH BID [facility] Last Admin: 01/05/18 21:38 Dose: Not Given Sodium Chloride (Ns Flush) 2 ml IV.FLUSH PRN PRN PRN Reason: FLUSH AFTER USING IV ACCESS Ticagrelor (Brilinta) 90 mg PO BID [facility] Allergies Allergy/AdvReac Type Severity Reaction Status Date / Time penicillin G Allergy Mild Sneezing Verified 01/05/18 17:44 tree and shrub pollen AdvReac Intermediate SNEEZING Verified 01/05/18 17:44 Home Medications Medication Instructions Recorded Confirmed Type Unable to Obtain Home Meds 01/05/18 01/05/18 History Physical Exam Vital signs: Vital Signs 01/05/18 17:41 01/05/18 20:50 Temperature 98 F Pulse Rate 60 Respiratory Rate 18 Blood Pressure 171/106 H Pulse Oximetry 94 L 99 Intake & Output 01/05/18 01/05/18 01/06/18 06:59 18:59 06:59 Weight 89.6 kg - Constitutional moderate distress - Routine HEENT Exam Head: Present: normocephalic, atraumatic Eye: Present: EOMI, PERRL, normal accommodation ENT: Present: mucous membranes moist - Routine Neck Exam Present: supple, full ROM. Absent: JVD, carotid bruit - Routine Respiratory Exam Present: rhonchi. Absent: accessory muscle use, respiratory distress, stridor, wheezes - Routine Cardiovascular Exam Present: RRR, S1, S2 - Routine Abdominal Exam Present: soft, normoactive bowel sounds. Absent: tenderness, distended - Routine Extremities Exam Absent: cyanosis, clubbing, edema - Routine Skin Exam Present: intact - Routine Neurological Exam Present: alert, oriented X3, normal reflexes - Detailed Neurological Exam: Coma Scale Eye Opening: Spontaneous Verbal Response: Oriented Motor Response: Obey commands [place] Coma Scale Total: 15 - Routine Psychiatric Exam Present: normal affect Assessment and Plan - Assessment and Plan Plan: Acute coronary syndrome -Status post V. fib arrest in the ED -Successful percutaneous intervention to circumflex and LAD -Management per cardiology, Dr. Beyer -Kojo -Aspirin, atorvastatin -Amiodarone to treat V. fib End-stage renal disease -Continue peritoneal dialysis -Nephrology consultation Diabetes mellitus -Insulin sliding scale DVT GI prophylaxis -Teds SCDs -Early aggressive mobilization -Subcu heparin -Pepcid Critical Care: The total critical care time was 35 minutes. Time to perform other separately billable procedures was not included in the critical care time.
[2018-01-05] MEDS ORDERED: Dextrose 50% in Water 50 ML Vial IV.PUSH PRN (23:01)
[2018-01-06] MEDS ORDERED: Chlorhexidine Gluconate 2% 1 Pack (2 Cloths) TOPICAL PRN ×2 (04:00)
[2018-01-06] MEDS ORDERED: Chlorhexidine Gluconate 2% 1 Pack (2 Cloths) TOPICAL SCH (04:00)
[2018-01-06] MEDS: Chlorhexidine Gluconate 2% 1 Pack (2 Cloths) TOPICAL SCH (04:35)
[2018-01-06] MEDS: Heparin - SQ 10,000 UNITS/ML Vial SQ SCH ×3 (05:58→21:53)
--- NOTE | 2018-01-06 08:15 | P.PNCC ---
Subjective Subjective Remarks/Hospital Course: 01/05: 62-year-old male who presents to the emergency department via private vehicle for chest pain. The patient states he was eating earlier today , approximately 1 hour prior to arrival when he developed chest pain. The chest pain was substernal, moderate to severe, initially 10/10, then 8/10, and radiating to the upper extremities bilaterally as well as the back. The patient describes the pain as gripping, pressure, and heaviness. The patient also had nausea, vomiting, diaphoresis, and lightheadedness. He denied any shortness of breath. The patient denies any known history of coronary artery disease but does have a history of end-stage renal disease on peritoneal dialysis as well as hypertension, hyperlipidemia, tobacco use, and borderline diabetes. The patient states he has never had a cardiac catheterization or stress test in the past. He denies any exertional component to his symptoms. In the emergency department he suffered V. fib cardiac arrest and was successfully resuscitated with delivering of shock and amiodarone. Due to EKG changes suggestive ST elevations he was immediately taken to cardiac catheterization lab where he was found to have a critical LAD and circumflex occlusion that was treated with a stent. Postprocedure he is admitted to CVICU. 01/06: Resting comfortably in bed. Denies any shortness of breath. Not in any acute distress. Objective Vital Signs / I&O: Vital Signs 01/05/18 17:41 01/05/18 20:32 01/05/18 20:43 Temperature 98 F 98.3 F Pulse Rate 60 61 Respiratory Rate 18 18 Blood Pressure 171/106 H 136/57 L Pulse Oximetry 94 L 99 99 01/05/18 20:50 01/05/18 20:58 01/05/18 21:43 Temperature Pulse Rate 59 L 58 L Respiratory Rate 22 20 Blood Pressure 117/72 Pulse Oximetry 99 99 98 01/05/18 22:00 01/05/18 23:00 01/05/18 23:17 Temperature 98.7 F Pulse Rate 58 L 60 Respiratory Rate 18 18 Blood Pressure 123/81 Pulse Oximetry 98 95 96 01/05/18 23:24 01/06/18 01:00 01/06/18 02:00 Temperature Pulse Rate 65 60 54 L Respiratory Rate 20 18 20 Blood Pressure 129/76 148/88 H Pulse Oximetry 96 01/06/18 03:00 01/06/18 04:00 01/06/18 05:00 Temperature 98.8 F Pulse Rate 57 L 56 L 53 L Respiratory Rate 22 21 18 Blood Pressure 124/75 158/94 H 148/96 H Pulse Oximetry 96 01/06/18 06:00 01/06/18 07:00 Temperature 98.6 F Pulse Rate 57 L 59 L Respiratory Rate 20 18 Blood Pressure 152/88 H 120/70 Pulse Oximetry 95 96 Intake & Output 01/05/18 01/06/18 01/06/18 18:59 06:59 18:59 Intake Total 480 / 480 Output Total 1000 / 1000 Balance -520 / -520 Weight 89.6 kg 90 kg Intake: Oral 480 / 480 Output: Urine 1000 / 1000 Other: Date of Last Bowel Movement 01/04/18 Result Diagrams: 01/05/18 17:45 01/05/18 17:45 Imaging: Chest X-Ray 01/05/18 17:56 CONCLUSION: Mild basilar atelectasis. Heart size mildly prominent. No effusion or pneumothorax. Objective Remarks: HEENT/Neuro: No pallor or icterus, tongue moist, EVELINE, Awake alert oriented 3 , nonfocal grossly, moving all 4 extremities Neck: No JVD Chest/pulmonary: CTA bilaterally Cardiovascular: S1-S2 regular no gallop or murmur GI/abdomen: Soft, nontender, bowel sounds present. PD catheter in place Extremities: Warm bilaterally, no edema Assessment and Plan - Assessment and Plan Plan: Acute coronary syndrome -Status post V. fib arrest in the ED -Successful percutaneous intervention to circumflex and LAD -Management per cardiology, Dr. Beyer -Kojo -Aspirin, atorvastatin -Amiodarone to treat V. fib End-stage renal disease -Continue peritoneal dialysis -Nephrology consultation Diabetes mellitus -Insulin sliding scale DVT GI prophylaxis -Teds SCDs -Early aggressive mobilization -Subcu heparin -Pepcid Patient doing well this morning. Consult hospitalist for further medical management, critical care will be signing off. Please reconsult if needed.
[2018-01-06] MEDS: Insulin NovoLOG Aspart Correctional Sugar Inj SQ SCH ×4 (08:35→20:35)
--- NOTE | 2018-01-06 08:36 | MA ---
cc: Darren Beyer MD DATE: 01/05/2018 PREPROCEDURE DIAGNOSES: 1. ST elevation myocardial infarction. 2. Cardiopulmonary arrest. 3. End-stage renal disease, on peritoneal dialysis. 4. Hypertension. 5. Hyperlipidemia. POSTPROCEDURE DIAGNOSES: 1. Successful percutaneous coronary intervention to the proximal circumflex using 1 Resolute drug-eluting stent. 2. Successful percutaneous coronary intervention to the proximal left anterior descending using 1 Resolute [place] drug-eluting stent. PROCEDURES PERFORMED: 1. Left heart catheterization via the right radial artery. 2. Successful percutaneous coronary intervention to the circumflex using a 2.5 x 34 Resolute Ramirez drug-eluting stent that was postdilated proximally with a 2.75 balloon. 3. Successful percutaneous coronary intervention to the mid LAD using a 3.0 x 22 Resolute [place] drug-eluting stent that was postdilated proximally with a 3.25 noncompliant balloon. INDICATION FOR PROCEDURE: In brief, the patient is a very pleasant gentleman who presented to the emergency room with new onset of chest pain and discomfort and subsequently had a cardiopulmonary arrest. After obtaining ROSC, the patient had evidence of ST elevation and subsequently we were identified, and the patient was transferred from [place]. Please see H and P for full details. DESCRIPTION OF PROCEDURE: After discussion of risks, benefits, and alternatives, the patient signed informed consent. He was brought to the catheterization suite in stable fasting nonsedated state. He was sterilely prepped and draped in the usual fashion, sedated with IV fentanyl and midazolam, 1% lidocaine solution was used for local anesthesia and we placed a 6-Cymro glide sheath into the right radial artery. A JR4 Dexterity catheter was used to engage the right coronary artery. Images were obtained after intracoronary contrast dye injection. This catheter was then exchanged for a JL3.5 catheter, which was used to engage the left main coronary artery. Images were obtained after intracoronary contrast dye injection. FINDINGS ON ANGIOGRAPHY: 1. Right coronary artery: The right coronary artery is a dominant vessel, which bifurcates into the posterior descending and posterolateral artery. There is a mild lesion in the mid RCA. The remainder of the vessel has minimal luminal irregularities. 2. Left main: The left main artery is a normal-caliber vessel that bifurcates into the left anterior descending artery and left circumflex artery. This vessel was angiographically free of significant disease. There are minimal luminal irregularities. 3. Left circumflex: The left circumflex is a moderate caliber vessel that gives rise to multiple obtuse marginal branches. The proximal circumflex has 100% occlusion. 4. Left anterior descending artery: The left anterior descending artery is a moderate caliber vessel that courses distally to wrap around the apex, giving rise to multiple diagonal arteries. The proximal portion of the left anterior descending artery has a severe stenosis. INTERVENTIONAL SUMMARY: We then proceeded with planned percutaneous coronary intervention. Using a 6-Cymro XB 3.5 guide, we engaged the left main coronary artery. A BMW wire was used to wire down the length of the vessel. We predilated with a 2.0 compliant balloon and subsequently there was flow down the circumflex. We then subsequently predilated with a 2.5 compliant balloon. This further increased the flow down the circumflex artery. We then placed a 2.5 x 34 Resolute [place] drug-eluting stent into the proximal circumflex at the bifurcation of the first OM and the ongoing circumflex artery. This was subsequently postdilated with a 2.75 noncompliant balloon proximally. The result showed JULIANN 3 flow, no evidence of dissection or perforation. We then redirected the BMW wire, repeated the angiography and side to post-dilate the distal segment with 2.5 noncompliant balloon. Final angiography of the circumflex showed JULIANN 3 flow and no evidence of dissection or perforation. A repeat shot was given after introduction of nitroglycerin. We then turned our attention to the left anterior descending artery. The BMW wire was redirected down the left anterior descending artery. We predilated with a 2.5 compliant balloon. Subsequently, we placed a 3.0 x 22 Resolute [place] drug-eluting stent in the proximal LAD. This was postdilated with a 3.25 noncompliant balloon proximally. Final angiography revealed JULIANN 3 flow and no evidence of dissection or perforation. PROCEDURAL SUMMARY: 1. Successful percutaneous coronary intervention of the circumflex using a 2.5 x 34 Resolute [place] drug-eluting stent postdilated proximally with a 2.75 balloon. 2. Successful percutaneous coronary intervention to the proximal left anterior descending using a 3.0 x 22 Resolute Ramirez drug-eluting stent postdilated with a 3.25 noncompliant balloon proximally. PLAN: 1. The patient will be monitored in the intensive care unit for further hemodynamic stability. 2. The patient was given 180 mg of Brilinta and will continue aspirin 81 mg and Brilinta 90 mg p.o. b.i.d. for a minimum duration of 1 year. 3. We will increase the dose of Lipitor to 40 mg p.o. at bedtime. 4. We will continue the patient's [id number] beta theron. 5. We will obtain a transthoracic echocardiogram. Thank you for allowing me to participate in the care of Mr. Day. Please feel free to contact us with any further questions regarding his care. Darren Beyer MD ADP/KD EL
[2018-01-06] MEDS: Famotidine 20 MG Tablet PO SCH ×2 (08:37→20:37)
[2018-01-06] MEDS: Senna/Docusate Sodium 8.6/50 MG Tablet PO SCH ×2 (08:37→20:34)
--- NOTE | 2018-01-06 08:45 | MH ---
cc: Darren Beyer MD DATE OF ADMISSION: 01/05/2018 CHIEF COMPLAINT: 1. Cardiopulmonary arrest. 2. ST elevation myocardial infarction. HISTORY OF PRESENT ILLNESS: Mr. Donte Day is a very pleasant 62-year-old gentleman who has got a past medical history of end-stage renal disease on peritoneal dialysis, hypertension, hyperlipidemia, history of tobacco abuse, who presented to the emergency room via a private vehicle earlier today. The history was obtained after 30 minutes of ongoing substernal chest pain associated with diaphoresis, vomiting and nausea. The patient, as soon as he arrived to the emergency room, within minutes was in cardiopulmonary arrest with VT followed by VF. He was shocked and placed on amiodarone. The prearrest EKG did not suggest ST elevation; however, the post-resuscitations suggested ST elevations in the inferior leads. He subsequently was brought to [facility] for emergent coronary angiography. The patient denied having any history of bleeding disorders. REVIEW OF SYSTEMS: A 14-point review of systems otherwise was negative. PAST MEDICAL HISTORY: 1. Peritoneal dialysis. 2. Hypertension. 3. Hyperlipidemia. 4. Prediabetes. 5. Tobacco abuse. SOCIAL HISTORY: He is a current smoker. No alcohol use. MEDICATIONS: Reviewed in electronic medical system. PHYSICAL EXAMINATION: VITAL SIGNS: Blood pressure 98/74, heart rate 55. GENERAL: Comfortable, in no acute distress on a nonrebreather mask. HEENT: Eyes: No scleral icterus. Oropharynx: Moist mucous membrane. CARDIOVASCULAR: Regular rate and rhythm. Normal S1, S2. No murmurs, rubs or gallops. LUNGS: Clear to auscultation. ABDOMEN: Soft, nontender, and nondistended. EXTREMITIES: No significant edema. NEUROLOGIC: A and O x 3. PSYCHIATRIC: Appropriate affect. IMPRESSION: 1. Ventricular fibrillation arrest. 2. ST elevation myocardial infarction. 3. End-stage renal disease. 4. Hypertension. 5. Prediabetes. PLAN: We will proceed with coronary angiography via the right radial artery. Risks, benefits, and alternatives were discussed. Thank you for allowing us to participate in the care of Mr. Donte Day. Please feel free to contact us with any further questions regarding his care. Darren Beyer MD ADP/KD EL
[2018-01-06 09:54] LABS: Calcium 8.7 mg/dL (8.5-10.1); Carbon Dioxide 24.6 meq/L (21.0-32.0); Potassium 3.9 meq/L (3.5-5.1)
--- NOTE | 2018-01-06 10:12 | P.PNCA ---
Subjective Interval history: No acute events overnight. Some chest wall tenderness. Physical Exam Vital signs: Vital Signs 01/05/18 17:41 01/05/18 20:32 01/05/18 20:43 Temperature 98 F 98.3 F Pulse Rate 60 61 Respiratory Rate 18 18 Blood Pressure 171/106 H 136/57 L Pulse Oximetry 94 L 99 99 01/05/18 20:50 01/05/18 20:58 01/05/18 21:43 Temperature Pulse Rate 59 L 58 L Respiratory Rate 22 20 Blood Pressure 117/72 Pulse Oximetry 99 99 98 01/05/18 22:00 01/05/18 23:00 01/05/18 23:17 Temperature 98.7 F Pulse Rate 58 L 60 Respiratory Rate 18 18 Blood Pressure 123/81 Pulse Oximetry 98 95 96 01/05/18 23:24 01/06/18 01:00 01/06/18 02:00 Temperature Pulse Rate 65 60 54 L Respiratory Rate 20 18 20 Blood Pressure 129/76 148/88 H Pulse Oximetry 96 01/06/18 03:00 01/06/18 04:00 01/06/18 05:00 Temperature 98.8 F Pulse Rate 57 L 56 L 53 L Respiratory Rate 22 21 18 Blood Pressure 124/75 158/94 H 148/96 H Pulse Oximetry 96 01/06/18 06:00 01/06/18 07:00 01/06/18 08:00 Temperature 98.6 F 98.6 F Pulse Rate 57 L 59 L 56 L Respiratory Rate 20 18 21 Blood Pressure 152/88 H 120/70 158/94 H Pulse Oximetry 95 96 97 Intake & Output 01/05/18 01/06/18 01/06/18 18:59 06:59 18:59 Intake Total 480 / 480 Output Total 1000 / 1000 Balance -520 / -520 Weight 89.6 kg 90 kg Intake: Oral 480 / 480 Output: Urine 1000 / 1000 Other: Date of Last Bowel Movement 01/04/18 - Constitutional no acute distress - Routine Cardiovascular Exam Present: RRR, S1, S2 - Routine Abdominal Exam Present: soft, normoactive bowel sounds - Routine Extremities Exam Absent: edema Assessment and Plan - Plan A/P STEMI- s/p PCI to circ x 1 MARSHALL (culprit) and LAD x 1 MARSHALL Vfib arrest ESRD on Peritoneal HD HTN HLD Transfer out of ICU, can complete gtt of amio then d/c Start coreg 3.125 TTE to evaluate LV function ASA 81mg and Brilinta 90mg po BID Cardiac Rehab
--- NOTE | 2018-01-06 11:31 | MB ---
cc: Edmundo Bills MD DATE: 01/06/2018 REASON FOR CONSULTATION: End-stage renal disease, on peritoneal dialysis, for management. HISTORY OF PRESENT ILLNESS: This is a 62-year-old male with a past medical history of hypertension, diabetes mellitus, ischemic heart disease, end-stage renal disease on peritoneal dialysis, who was brought to the hospital with chest pain. I was called to see the patient for the management of end-stage renal disease, on peritoneal dialysis. The patient has been on peritoneal dialysis for last 4 years. He has been following with Dr. Carroll. The patient had his dinner last night and after 1 hour of this, he started having this chest pain, went to the emergency room at [facility] and a while he was there, he developed ventricular tachycardia and cardiac arrest and he was given a shock. He has some nausea and vomiting before all this happened and was feeling dizzy. Now, the patient is alert, awake. He does not have any chest pain. He denies any shortness of breath. No abdominal pain. No nausea or vomiting at this point. PAST MEDICAL HISTORY: Hypertension, diabetes mellitus, end-stage renal disease on peritoneal dialysis, chronic anemia, ischemic heart disease. PAST SURGICAL HISTORY: History of PD catheter placement. REVIEW OF SYSTEMS: Denies any history of fever. He had mild shortness of breath at that time when he had the chest pain. The chest pain was mainly retrosternal, associated with nausea and also associated with lightheadedness and feeling dizzy. No abdominal pain. No history of diarrhea. SOCIAL HISTORY: The patient is . He has history of smoking and no history of heavy alcoholism. FAMILY HISTORY: Noncontributory. ALLERGIES: ALLERGIC TO PENICILLIN. MEDICATIONS: Currently, he is on following medications: 1. ____ amiodarone infusion. 2. Aspirin 81 mg once a day. 3. Lipitor 40 mg at bedtime. 4. Coreg 3.125 mg b.i.d. 5. Dulcolax as needed. 6. Famotidine 20 mg b.i.d. 7. Glucagon 1 mg p.r.n. 8. Lactulose 30 mL daily. 9. Senokot 17.2 mg every 12 hours. 10. Ticagrelor 90 mg b.i.d. PHYSICAL EXAMINATION: GENERAL: The patient is awake, alert. He is not in acute distress. VITAL SIGNS: His last blood pressure is 158/94, temperature is 98.6, oxygen saturation on 4 liters nasal cannula is 97%. HEENT: Pupils are mid constricted. Nonicteric sclerae. Conjunctivae normal. NECK: Supple. JVD is not elevated. LUNGS: Breast sounds bilateral ,good air entry with few basal rales. HEART: S1, S2. Regular rate and rhythm. ABDOMEN: Soft and lax. There is no tenderness. PD catheter in place. Slightly distended. EXTREMITIES: There is mild pedal edema. LABORATORY INVESTIGATIONS: WBC count is 10.8, hemoglobin is 15.4, platelet count of 213, neutrophils 66.1%. INR is 1.0. Last BMP showing sodium 137, potassium 3.9, chloride 101, bicarbonate 24.6, BUN 75, creatinine 9.6, glucose 133, calcium 8.7, magnesium 2.5, AST is 14, ALT is 24. Troponin 0.1. Albumin 3.6. IMAGING STUDIES: The patient had a chest x-ray done yesterday and it shows mild basilar atelectasis. ASSESSMENT AND PLAN: 1. Acute cardiac ischemia and post ventricular fibrillation with cardiac arrest. 2. End-stage renal disease, on peritoneal dialysis. 3. Hypertension. 4. Diabetes mellitus. The patient has been seen by Cardiology and currently has no chest pain. Hemodynamically, the patient is stable. He missed his peritoneal dialysis last night. It will be started today in the evening. He is not in fluid overload status. Potassium is normal. Cardiology wants to do an echocardiogram. Continue with aspirin and Brilinta. We will do peritoneal dialysis with 1.5% solution tonight. Thank you for the consultation. I will follow the patient over the weekend. MD CHAVEZ Johnston/RACHEL , 11:01 AM , 11:14 AM
--- NOTE | 2018-01-06 13:32 | ECHRPT ---
Indication: CORONARY ATHEROSCLEROSIS CONCLUSIONS The left ventricular systolic function is hyperdynamic with an estimated ejection fraction in the ra nge of 65- 70%. Normal left ventricular size. Wall thickness is normal. No regional wall motion abnormalities are present. [id number] mitral valve regurgitation. BP: / HR: Rhythm: Sinus Technical Quality:Good FINDINGS LEFT VENTRICLE The left ventricular systolic function is hyperdynamic with an estimated ejection fraction in the ra nge of 65- 70%. Normal left ventricular size. Wall thickness is normal. No regional wall motion abnormalities are present. RIGHT VENTRICLE Normal right ventricular size and systolic function. LEFT ATRIUM The left atrial size is normal. RIGHT ATRIUM The right atrial size is normal. ATRIAL SEPTUM Normal atrial septal thickness without atrial level shunting by limited color doppler interrogation. AORTA The aortic root and proximal ascending aorta are normal in size on limited imaging. MITRAL VALVE Structurally normal mitral valve. [id number] mitral valve regurgitation. AORTIC VALVE Trileaflet aortic valve. No aortic valve stenosis or regurgitation. TRICUSPID VALVE Structurally normal tricuspid valve. No tricuspid valve stenosis or regurgitation. PULMONARY VALVE The pulmonary valve is not well visualized. VESSELS The inferior vena cava is normal in size. PERICARDIUM No pericardial effusion. Robert Trujillo MD, FACC, FSCAI (Electronically Signed) Final Date:06 January 2018 13:30
--- NOTE | 2018-01-06 14:07 | ECG ---
Date Performed: 01/05/2018 Time Performed: 18:00:44 PTAGE: 62 years EKG: Sinus rhythm WITH FIRST DEGREE AV BLOCK BORDERLINE LEFT AXIS DEVIATION MODERATE INTRAVENTRICULAR CONDUCTION DELAY MARKED ST DEPRESSION, CONSIDER SUBENDOCARDIAL INJURY ABNORMAL ECG Inferior ST elevation not meeting criteria for STEMI, though overall concerning for an acute posterior infarction: clinical correlatio n required. Compared to PREVIOUS TRACING , ST changes concerning for acute LA DOCTOR: Darshana Wheeler Interpretating Date/Time 01/06/2018 14:06:56
--- NOTE | 2018-01-06 14:10 | ECG ---
Date Performed: 01/05/2018 Time Performed: 17:39:26 PTAGE: 62 years EKG: Sinus rhythm WITH FIRST DEGREE AV BLOCK BORDERLINE LEFT AXIS DEVIATION MODERATE INTRAVENTRICULAR CONDUCTION DELAY NONSPECIFIC ST & T-WAVE ABNORMALITY ABNORMAL ECG Since the PREVIOUS TRACING , no significant change noted PREVIOUS TRACIN12/21/2015 09.35 DOCTOR: Darshana Wheeler Interpretating Date/Time 01/06/2018 14:08:34
[2018-01-07] MEDS: Chlorhexidine Gluconate 2% 1 Pack (2 Cloths) TOPICAL SCH ×2 (03:55→06:02)
[2018-01-07 04:31] LABS: Baso % (Auto) 0.5 % (0.0-2.0); Eos # (Auto) 0.3 th/mm3 (0.0-0.4); Eos % (Auto) 2.9 % (0.0-4.0); Hematocrit 40.3 % (39.0-51.0); Hemoglobin 13.4 gm/dL (13.0-17.0); Lymph # (Auto) 0.9 th/mm3 (1.0-4.8); Lymph % (Auto) 9.3 % (9.0-44.0); Mean Corpuscular HGB Conc 33.3 % (32.0-36.0); Mean Corpuscular Volume 90.1 fL (80.0-100.0); Mean Platelet Volume 8.4 fL (7.0-11.0); Mono # (Auto) 0.8 th/mm3 (0.0-0.9); Mono % (Auto) 8.1 % (0.0-8.0); Neut % (Auto) 79.2 % (16.0-70.0); Platelet Count 184 th/mm3 (150-450); Red Blood Count 4.48 mil/mm3 (4.50-5.90); Red Cell Distribution Width 14.8 % (11.6-17.2); White Blood Count 10.2 th/mm3 (4.0-11.0)
[2018-01-07 04:42] LABS: Prothrombin Time 10.3 sec (9.8-11.6)
[2018-01-07 04:56] LABS: Alanine Aminotransferase 36 U/L (12-78); Albumin 2.9 g/dL (3.4-5.0); Anion Gap 12 meq/L (5-15); Aspartate Aminotransferase 85 U/L (15-37); Blood Urea Nitrogen 66 mg/dL (7-18); Calcium 8.8 mg/dL (8.5-10.1); Chloride 102 meq/L (98-107); Cholesterol 142 mg/dL (120-200); Glomerular Filtration Rate 6 mL/min (>89); Glucose,Random 130 mg/dL (74-106); Magnesium 2.4 mg/dL (1.5-2.5); Phosphorus 4.6 mg/dL (2.5-4.9); Potassium 3.5 meq/L (3.5-5.1); Sodium 139 meq/L (136-145); Triglycerides 127 mg/dL (42-150)
[2018-01-07 05:05] LABS: Alkaline Phosphatase 60 U/L (45-117); Chol/HDL Ratio 4.18 Ratio; Free T4 (Free Thyroxine) 0.75 ng/dL (0.76-1.46); HDL Cholesterol 33.9 mg/dL (40.0-60.0); LDL Cholesterol,Calculated 83 mg/dL (0-99); Thyroid Stimulating Hormone 0.251 uIU/mL (0.358-3.740); Total Protein 6.4 g/dL (6.4-8.2)
[2018-01-07] MEDS: Heparin - SQ 10,000 UNITS/ML Vial SQ SCH ×3 (05:23→21:37)
[2018-01-07] MEDS: Insulin NovoLOG Aspart Correctional Sugar Inj SQ SCH ×4 (07:27→21:51)
[2018-01-07] MEDS: Famotidine 20 MG Tablet PO SCH ×2 (08:25→21:36)
[2018-01-07] MEDS: Senna/Docusate Sodium 8.6/50 MG Tablet PO SCH ×2 (08:26→21:36)
--- NOTE | 2018-01-07 09:49 | P.PNIM ---
Subjective Interval history: 01/05: 62-year-old male who presents to the emergency department via private vehicle for chest pain. The patient states he was eating earlier today , approximately 1 hour prior to arrival when he developed chest pain. The chest pain was substernal, moderate to severe, initially 10/10, then 8/10, and radiating to the upper extremities bilaterally as well as the back. The patient describes the pain as gripping, pressure, and heaviness. The patient also had nausea, vomiting, diaphoresis, and lightheadedness. He denied any shortness of breath. The patient denies any known history of coronary artery disease but does have a history of end-stage renal disease on peritoneal dialysis as well as hypertension, hyperlipidemia, tobacco use, and borderline diabetes. The patient states he has never had a cardiac catheterization or stress test in the past. He denies any exertional component to his symptoms. In the emergency department he suffered V. fib cardiac arrest and was successfully resuscitated with delivering of shock and amiodarone. Due to EKG changes suggestive ST elevations he was immediately taken to cardiac catheterization lab where he was found to have a critical LAD and circumflex occlusion that was treated with a stent. Postprocedure he is admitted to CVICU. 8/: Resting comfortably in bed. Denies any shortness of breath. Not in any acute distress. 8-5 TRANSFERRED TO OUR SERVICE TODAY VERY ANXIOUS TODAY SP STENTING TO LAD AND CIRCUMFLES WILL MAKE ATIVAN AVAILABLE AND NICODERM PATCH DW RN AND PT INCREASE ACTIVITY Physical Exam Vital signs: Vital Signs 01/06/18 11:00 01/06/18 12:00 01/06/18 14:04 Temperature 98.4 F Pulse Rate 56 L Respiratory Rate 18 Blood Pressure 137/90 Pulse Oximetry 92 L 92 L 01/06/18 15:00 01/06/18 19:00 01/06/18 20:00 Temperature 98.2 F 98.7 F Pulse Rate 67 65 Respiratory Rate 18 16 Blood Pressure 128/88 142/86 H Pulse Oximetry 97 01/06/18 23:00 01/07/18 03:00 01/07/18 07:00 Temperature 98.3 F 98.5 F 98.3 F Pulse Rate 63 68 64 Respiratory Rate 18 16 16 Blood Pressure 141/87 H 110/54 L 112/58 L Pulse Oximetry 01/07/18 08:00 Temperature Pulse Rate Respiratory Rate Blood Pressure Pulse Oximetry 93 L Intake & Output 01/06/18 01/07/18 01/07/18 18:59 06:59 18:59 Intake Total 1300 / 1300 480 / 480 Output Total 1110 / 1110 900 / 900 Balance 190 / 190 -420 / -420 Weight 91 kg Intake: Oral 1300 / 1300 480 / 480 Output: Urine 1110 / 1110 900 / 900 Other: # Bowel Movements 0 0 Narrative: GENERAL: Awake and alert talkative and cooperative very anxious SKIN: Warm and dry. HEAD: Atraumatic. Normocephalic. EYES: Pupils equal and round. No scleral icterus. No injection or drainage. EOMI ENT: No nasal bleeding or discharge. Mucous membranes pink and moist. Tongue is midline NECK: Trachea midline. No JVD. Supple CARDIOVASCULAR: IRRegular rate and rhythm. S1-S2 no S3 or S4 RESPIRATORY: No accessory muscle use. Clear to auscultation. Breath sounds equal bilaterally. GASTROINTESTINAL: Abdomen soft, non-tender, nondistended. Hepatic and splenic margins not palpable. MUSCULOSKELETAL: Extremities without clubbing, cyanosis, or edema. No obvious deformities. NEUROLOGICAL: Awake and alert. No obvious cranial nerve deficits. Motor grossly within normal limits. Five out of 5 muscle strength in the arms and legs. Normal speech. PSYCHIATRIC: INAppropriate mood and affect; insight and judgment ABnormal. Very anxious at this time Results - Labs CBC & Chem 7: 01/07/18 03:54 01/07/18 03:54 Laboratory Results - last 24 hr 01/06/18 01/06/18 01/06/18 08:04 09:10 09:10 WBC RBC Hgb Hct MCV MCH MCHC RDW Plt Count MPV Neut % (Auto) Lymph % (Auto) [place]bs % (Auto) Eos % (Auto) Baso % (Auto) Neut # (Auto) Lymph # (Auto) [place] # (Auto) Eos # (Auto) Baso # (Auto) WBC Differential Differential Comment PT INR Sodium 137 Potassium 3.9 Chloride 101 Carbon Dioxide 24.6 Anion Gap 11 BUN 75 H Creatinine 9.60 H Estimated GFR 6 L POC Glucose Random Glucose 133 H Calcium 8.7 D Phosphorus Magnesium 2.5 Total Bilirubin AST ALT Alkaline Phosphatase Total Protein Albumin Triglycerides Cholesterol LDL Cholesterol, Calc HDL Cholesterol Cholesterol/HDL Ratio TSH Free T4 Nasal Screen MRSA (PCR) Not detected 01/06/18 01/06/18 01/06/18 11:39 16:04 19:47 WBC RBC Hgb Hct MCV MCH MCHC RDW Plt Count MPV Neut % (Auto) Lymph % (Auto) [place]bs % (Auto) Eos % (Auto) Baso % (Auto) Neut # (Auto) Lymph # (Auto) [place]bs # (Auto) Eos # (Auto) Baso # (Auto) WBC Differential Differential Comment PT INR Sodium Potassium Chloride Carbon Dioxide Anion Gap BUN Creatinine Estimated GFR POC Glucose 163 H 121 H 172 H Random Glucose Calcium Phosphorus Magnesium Total Bilirubin AST ALT Alkaline Phosphatase Total Protein Albumin Triglycerides Cholesterol LDL Cholesterol, Calc HDL Cholesterol Cholesterol/HDL Ratio TSH Free T4 Nasal Screen MRSA (PCR) 01/07/18 01/07/18 01/07/18 03:54 03:54 03:54 WBC 10.2 RBC 4.48 L Hgb 13.4 D Hct 40.3 MCV 90.1 MCH 30.0 MCHC 33.3 RDW 14.8 Plt Count 184 MPV 8.4 Neut % (Auto) 79.2 H Lymph % (Auto) 9.3 [place]ombs % (Auto) 8.1 H Eos % (Auto) 2.9 Baso % (Auto) 0.5 Neut # (Auto) 8.0 H Lymph # (Auto) 0.9 L [place]bs # (Auto) 0.8 Eos # (Auto) 0.3 Baso # (Auto) 0.0 WBC Differential . Differential Comment Auto diff final PT 10.3 INR 1.0 Sodium 139 Potassium 3.5 Chloride 102 Carbon Dioxide 25.0 Anion Gap 12 BUN 66 H Creatinine 9.11 H Estimated GFR 6 L POC Glucose Random Glucose 130 H Calcium 8.8 Phosphorus 4.6 Magnesium 2.4 Total Bilirubin 0.3 AST 85 H ALT 36 Alkaline Phosphatase 60 Total Protein 6.4 D Albumin 2.9 L D Triglycerides 127 Cholesterol 142 LDL Cholesterol, Calc 83 HDL Cholesterol 33.9 L Cholesterol/HDL Ratio 4.18 TSH 0.251 L Free T4 0.75 L Nasal Screen MRSA (PCR) - Imaging Chest X-Ray 01/05/18 17:56 CONCLUSION: Mild basilar atelectasis. Heart size mildly prominent. No effusion or pneumothorax. - Procedures 01/05/[address]: [address] elevation myocardial infarction. 2. Cardiopulmonary arrest. 3. End-stage renal disease, on peritoneal dialysis. 4. Hypertension. 5. Hyperlipidemia. POSTPROCEDURE DIAGNOSES: 1. Successful percutaneous coronary intervention to the proximal circumflex using 1 Resolute drug-eluting stent. 2. Successful percutaneous coronary intervention to the proximal left anterior descending using 1 Resolute Ramirez drug-eluting stent. PROCEDURES PERFORMED: 1. Left heart catheterization via the right radial artery. 2. Successful percutaneous coronary intervention to the circumflex using a 2.5 x 34 Resolute Ramirez drug-eluting stent that was postdilated proximally with a 2.75 balloon. 3. Successful percutaneous coronary intervention to the mid LAD using a 3.0 x 22 Resolute Ramirez drug-eluting stent that was postdilated proximally with a 3.25 noncompliant balloon. INDICATION FOR PROCEDURE: In brief, the patient is a very pleasant gentleman who presented to the emergency room with new onset of chest pain and discomfort and subsequently had a cardiopulmonary arrest. After obtaining ROSC, the patient had evidence of ST elevation and subsequently we were identified, and the patient was transferred from [place]. Please see H and P for full details. DESCRIPTION OF PROCEDURE: After discussion of risks, benefits, and alternatives, the patient signed informed consent. He was brought to the catheterization suite in stable fasting nonsedated state. He was sterilely prepped and draped in the usual fashion, sedated with IV fentanyl and midazolam, 1% lidocaine solution was used for local anesthesia and we placed a 6-Australian glide sheath into the right radial artery. A JR4 Dexterity catheter was used to engage the right coronary artery. Images were obtained after intracoronary contrast dye injection. This catheter was then exchanged for a JL3.5 catheter, which was used to engage the left main coronary artery. Images were obtained after intracoronary contrast dye injection. FINDINGS ON ANGIOGRAPHY: 1. Right coronary artery: The right coronary artery is a dominant vessel, which bifurcates into the posterior descending and posterolateral artery. There is a mild lesion in the mid RCA. The remainder of the vessel has minimal luminal irregularities. 2. Left main: The left main artery is a normal-caliber vessel that bifurcates into the left anterior descending artery and left circumflex artery. This vessel was angiographically free of significant disease. There are minimal luminal irregularities. 3. Left circumflex: The left circumflex is a moderate caliber vessel that gives rise to multiple obtuse marginal branches. The proximal circumflex has 100% occlusion. 4. Left anterior descending artery: The left anterior descending artery is a moderate caliber vessel that courses distally to wrap around the apex, giving rise to multiple diagonal arteries. The proximal portion of the left anterior descending artery has a severe stenosis. INTERVENTIONAL SUMMARY: We then proceeded with planned percutaneous coronary intervention. Using a 6-Australian XB 3.5 guide, we engaged the left main coronary artery. A BMW wire was used to wire down the length of the vessel. We predilated with a 2.0 compliant balloon and subsequently there was flow down the circumflex. We then subsequently predilated with a 2.5 compliant balloon. This further increased the flow down the circumflex artery. We then placed a 2.5 x 34 Resolute [place] drug-eluting stent into the proximal circumflex at the bifurcation of the first OM and the ongoing circumflex artery. This was subsequently postdilated with a 2.75 noncompliant balloon proximally. The result showed JULIANN 3 flow, no evidence of dissection or perforation. We then redirected the BMW wire, repeated the angiography and side to post-dilate the distal segment with 2.5 noncompliant balloon. Final angiography of the circumflex showed JULIANN 3 flow and no evidence of dissection or perforation. ____ hotshot was given after introduction of nitroglycerin. We then turned our attention to the left anterior descending artery. The BMW wire was redirected down the left anterior descending artery. We predilated with a 2.5 compliant balloon. Subsequently, we placed a 3.0 x 22 Resolute [place] drug-eluting stent in the proximal LAD. This was postdilated with a 3.25 noncompliant balloon proximally. Final angiography revealed JLUIANN 3 flow and no evidence of dissection or perforation. PROCEDURAL SUMMARY: 1. Successful percutaneous coronary intervention of the circumflex using a 2.5 x 34 Resolute [place] drug-eluting stent postdilated proximally with a 2.75 balloon. 2. Successful percutaneous coronary intervention to the proximal left anterior descending using a 3.0 x 22 Resolute Ramirez drug-eluting stent postdilated with a 3.25 noncompliant balloon proximally. PLAN: 1. The patient will be monitored in the intensive care unit for further hemodynamic stability. 2. The patient was given 180 mg of Brilinta and will continue aspirin 81 mg and Brilinta 90 mg p.o. b.i.d. for a minimum duration of 1 year. 3. We will increase the dose of Lipitor to 40 mg p.o. at bedtime. 4. We will continue the patient's [id number] beta theron. 5. We will obtain a transthoracic echocardiogram. Thank you for allowing me to participate in the care of Mr. Day. Please feel free to contact us with any further questions regarding his care. Darren Beyer MD Assessment and Plan - Plan Acute coronary syndrome -Status post V. fib arrest in the ED -Successful percutaneous intervention to circumflex and LAD -Management per cardiology, Dr. Beyer -Brilinta -Aspirin, atorvastatin -Amiodarone to treat V. fib End-stage renal disease -Continue peritoneal dialysis -Nephrology consultation Diabetes mellitus -Insulin sliding scale Anxiety will make some Ativan available Tobacco abuse will need NicoDerm patch available Increase activity A.m. labs DVT GI prophylaxis -Teds SCDs -Early aggressive mobilization -Subcu heparin -Pepcid TRY TO OBTAIN HOME MEDICATIONS Code Status: Full code Discussed Condition With: RN and patient Discharge Planning: Pending cardiac clearance
[2018-01-07] MEDS: LORazepam 0.5 MG Tablet PO PRN ×2 (10:17→23:01)
[2018-01-07] MEDS: Furosemide 80 MG Tablet PO SCH (11:54)
[2018-01-07] MEDS: Vitamin B Complex/Vit C/Folic Tablet PO SCH (12:20)
[2018-01-07] MEDS: Calcitriol 0.25 MCG Capsule PO SCH ×2 (12:20→21:36)
[2018-01-07] MEDS: Calcium Acetate 667 MG Capsule PO SCH ×2 (12:22→17:10)
[2018-01-07 12:34] LABS: Hemoglobin A1c 6.4 % (4.3-6.0)
--- NOTE | 2018-01-07 14:16 | P.PNCA ---
Subjective Interval history: No CP or SOB this am Physical Exam Vital signs: Vital Signs 01/06/18 15:00 01/06/18 19:00 01/06/18 20:00 Temperature 98.2 F 98.7 F Pulse Rate 67 65 Respiratory Rate 18 16 Blood Pressure 128/88 142/86 H Pulse Oximetry 97 01/06/18 23:00 01/07/18 03:00 01/07/18 07:00 Temperature 98.3 F 98.5 F 98.3 F Pulse Rate 63 68 64 Respiratory Rate 18 16 16 Blood Pressure 141/87 H 110/54 L 112/58 L Pulse Oximetry 01/07/18 08:00 01/07/18 11:00 Temperature 98.2 F Pulse Rate 62 Respiratory Rate 18 Blood Pressure 141/79 H Pulse Oximetry 93 L Intake & Output 01/06/18 01/07/18 01/07/18 18:59 06:59 18:59 Intake Total 1300 / 1300 480 / 480 Output Total 1110 / 1110 900 / 900 Balance 190 / 190 -420 / -420 Weight 91 kg Intake: Oral 1300 / 1300 480 / 480 Output: Urine 1110 / 1110 900 / 900 Other: # Bowel Movements 0 0 - Constitutional no acute distress - Routine Respiratory Exam Present: CTA bilaterally - Routine Cardiovascular Exam Present: RRR, S1, S2 - Routine Abdominal Exam Present: soft, normoactive bowel sounds - Routine Neurological Exam Present: alert, oriented X3 Assessment and Plan - Plan A/P STEMI- s/p PCI to circ x 1 MARSHALL (culprit) and LAD x 1 MARSHALL Vfib arrest ESRD on Peritoneal HD HTN HLD Uptitrate coreg to 6.25mg BID TTE shows normal LV function. ASA 81mg and Brilinta 90mg po BID Lipitor 40mg po qha Cardiac Rehab Likely d/c margot
--- NOTE | 2018-01-07 17:25 | P.PNNP ---
Subjective Interval history: Patient is alert, no SOB, no chest pain, not in distress. Physical Exam Vital signs: Vital Signs 01/06/18 19:00 01/06/18 20:00 01/06/18 23:00 Temperature 98.7 F 98.3 F Pulse Rate 65 63 Respiratory Rate 16 18 Blood Pressure 142/86 H 141/87 H Pulse Oximetry 97 01/07/18 03:00 01/07/18 07:00 01/07/18 08:00 Temperature 98.5 F 98.3 F Pulse Rate 68 64 Respiratory Rate 16 16 Blood Pressure 110/54 L 112/58 L Pulse Oximetry 93 L 01/07/18 11:00 01/07/18 15:00 01/07/18 17:13 Temperature 98.2 F 98.6 F Pulse Rate 62 68 Respiratory Rate 18 Blood Pressure 141/79 H 136/90 Pulse Oximetry 95 Intake & Output 01/06/18 01/07/18 01/07/18 18:59 06:59 18:59 Intake Total 1300 / 1300 480 / 480 Output Total 1110 / 1110 900 / 900 Balance 190 / 190 -420 / -420 Weight 91 kg Intake: Oral 1300 / 1300 480 / 480 Output: Urine 1110 / 1110 900 / 900 Other: # Bowel Movements 0 0 Narrative: GENERAL: Awake and alert talkative and cooperative very anxious SKIN: Warm and dry. HEAD: Atraumatic. Normocephalic. EYES: Pupils equal and round. No scleral icterus. No injection or drainage. EOMI ENT: No nasal bleeding or discharge. Mucous membranes pink and moist. Tongue is midline NECK: Trachea midline. No JVD. Supple CARDIOVASCULAR: IRRegular rate and rhythm. S1-S2 no S3 or S4 RESPIRATORY: No accessory muscle use. Clear to auscultation. Breath sounds equal bilaterally. GASTROINTESTINAL: Abdomen soft, non-tender, nondistended. Hepatic and splenic margins not palpable. MUSCULOSKELETAL: Extremities without clubbing, cyanosis, or edema. No obvious deformities. NEUROLOGICAL: Awake and alert. No obvious cranial nerve deficits. Motor grossly within normal limits. Five out of 5 muscle strength in the arms and legs. Normal speech. PSYCHIATRIC: INAppropriate mood and affect; insight and judgment ABnormal. Very anxious at this time Assessment and Plan - Plan 1. Acute cardiac ischemia and post ventricular fibrillation with cardiac arrest. 2. End-stage renal disease, on peritoneal dialysis. 3. Hypertension. 4. Diabetes mellitus. The patient has been seen by Cardiology and currently has no chest pain. Hemodynamically, the patient is stable. He is not in fluid overload status. Potassium is normal. Cardiology wants to do an echocardiogram. Continue with aspirin and Brilinta. Started on PD yesterday evening, no abd. pain, PD fluid is clear. Possible discharge tomorrow. Dr. Carroll will follow from AM.
[2018-01-07] MEDS ORDERED: Temazepam 15 MG Capsule PO SCH (21:00)
[2018-01-07] MEDS ORDERED: Gabapentin 100 MG Capsule PO SCH (21:00)
[2018-01-07] MEDS: Carvedilol 6.25 MG Tablet PO SCH (21:36)
[2018-01-08] MEDS: Chlorhexidine Gluconate 2% 1 Pack (2 Cloths) TOPICAL SCH (05:17)
[2018-01-08 05:55] LABS: Baso % (Auto) 0.4 % (0.0-2.0); Eos # (Auto) 0.3 th/mm3 (0.0-0.4); Eos % (Auto) 3.3 % (0.0-4.0); Hematocrit 37.7 % (39.0-51.0); Hemoglobin 12.7 gm/dL (13.0-17.0); Lymph # (Auto) 0.9 th/mm3 (1.0-4.8); Lymph % (Auto) 10.1 % (9.0-44.0); Mean Corpuscular HGB Conc 33.6 % (32.0-36.0); Mean Corpuscular Hemoglobin 30.3 pg (27.0-34.0); Mean Corpuscular Volume 90.1 fL (80.0-100.0); Mean Platelet Volume 8.4 fL (7.0-11.0); Mono # (Auto) 0.9 th/mm3 (0.0-0.9); Mono % (Auto) 9.6 % (0.0-8.0); Neut # (Auto) 6.8 th/mm3 (1.8-7.7); Neut % (Auto) 76.6 % (16.0-70.0); Platelet Count 173 th/mm3 (150-450); Red Blood Count 4.19 mil/mm3 (4.50-5.90); Red Cell Distribution Width 14.9 % (11.6-17.2); White Blood Count 8.9 th/mm3 (4.0-11.0)
[2018-01-08 06:12] LABS: Alanine Aminotransferase 29 U/L (12-78); Albumin 2.7 g/dL (3.4-5.0); Amylase 51 U/L (25-115); Anion Gap 11 meq/L (5-15); Aspartate Aminotransferase 56 U/L (15-37); Blood Urea Nitrogen 62 mg/dL (7-18); Calcium 8.6 mg/dL (8.5-10.1); Carbon Dioxide 26.4 meq/L (21.0-32.0); Chloride 103 meq/L (98-107); Glomerular Filtration Rate 6 mL/min (>89); Glucose,Random 114 mg/dL (74-106); Lipase 122 U/L (73-393); Magnesium 2.5 mg/dL (1.5-2.5); Phosphorus 4.2 mg/dL (2.5-4.9); Potassium 3.4 meq/L (3.5-5.1); Sodium 140 meq/L (136-145)
[2018-01-08 06:15] LABS: Alkaline Phosphatase 56 U/L (45-117); Total Protein 6.5 g/dL (6.4-8.2)
[2018-01-08] MEDS ORDERED: Iohexol 350 MG/ML 50 ML Vial (for Cath Lab) IVCONTRAST ONE (06:49)
[2018-01-08] MEDS ORDERED: Iohexol 350 MG/ML 100 ML Vial (for Cath Lab) IVCONTRAST ONE (06:49)
[2018-01-08] MEDS: Heparin - SQ 10,000 UNITS/ML Vial SQ SCH (08:24)
[2018-01-08] MEDS: Calcitriol 0.25 MCG Capsule PO SCH (08:25)
[2018-01-08] MEDS: Furosemide 80 MG Tablet PO SCH (08:25)
[2018-01-08] MEDS: Carvedilol 6.25 MG Tablet PO SCH (08:25)
[2018-01-08] MEDS: Calcium Acetate 667 MG Capsule PO SCH (08:26)
[2018-01-08] MEDS: Famotidine 20 MG Tablet PO SCH (08:26)
[2018-01-08] MEDS: Vitamin B Complex/Vit C/Folic Tablet PO SCH (08:26)
[2018-01-08] MEDS: Senna/Docusate Sodium 8.6/50 MG Tablet PO SCH (08:26)
[2018-01-08] MEDS: Insulin NovoLOG Aspart Correctional Sugar Inj SQ SCH (08:31)
--- NOTE | 2018-01-08 09:40 | P.PNIM ---
Subjective Interval history: 01/05: 62-year-old male who presents to the emergency department via private vehicle for chest pain. The patient states he was eating earlier today , approximately 1 hour prior to arrival when he developed chest pain. The chest pain was substernal, moderate to severe, initially 10/10, then 8/10, and radiating to the upper extremities bilaterally as well as the back. The patient describes the pain as gripping, pressure, and heaviness. The patient also had nausea, vomiting, diaphoresis, and lightheadedness. He denied any shortness of breath. The patient denies any known history of coronary artery disease but does have a history of end-stage renal disease on peritoneal dialysis as well as hypertension, hyperlipidemia, tobacco use, and borderline diabetes. The patient states he has never had a cardiac catheterization or stress test in the past. He denies any exertional component to his symptoms. In the emergency department he suffered V. fib cardiac arrest and was successfully resuscitated with delivering of shock and amiodarone. Due to EKG changes suggestive ST elevations he was immediately taken to cardiac catheterization lab where he was found to have a critical LAD and circumflex occlusion that was treated with a stent. Postprocedure he is admitted to CVICU. 8/: Resting comfortably in bed. Denies any shortness of breath. Not in any acute distress. 8-5 TRANSFERRED TO OUR SERVICE TODAY VERY ANXIOUS TODAY SP STENTING TO LAD AND CIRCUMFLEX WILL MAKE ATIVAN AVAILABLE AND NICODERM PATCH DW RN AND PT INCREASE ACTIVITY 8-6 medications have been adjusted by cardiology can be discharged home later today We will replace potassium Discharge to home today Discussed with cardiology yesterday and they were okay with him being discharged home today we will discharge to Physical Exam Vital signs: Vital Signs 01/07/18 11:00 01/07/18 15:00 01/07/18 17:13 Temperature 98.2 F 98.6 F Pulse Rate 62 68 Respiratory Rate 18 Blood Pressure 141/79 H 136/90 Pulse Oximetry 95 01/07/18 19:00 01/07/18 19:45 01/07/18 21:19 Temperature 98.3 F Pulse Rate 69 Respiratory Rate 12 Blood Pressure 140/95 H Pulse Oximetry 97 96 96 01/07/18 23:00 01/08/18 03:00 01/08/18 07:00 Temperature 98.3 F 97.8 F 97.8 F Pulse Rate 61 70 61 Respiratory Rate 18 16 16 Blood Pressure 111/65 92/51 L 145/91 H Pulse Oximetry 94 L 01/08/18 08:00 01/08/18 08:09 Temperature Pulse Rate Respiratory Rate Blood Pressure Pulse Oximetry 94 L 97 Intake & Output 01/07/18 01/08/18 01/08/18 18:59 06:59 18:59 Intake Total 1250 / 1250 Output Total 760 / 760 475 / 475 Balance 490 / 490 -475 / -475 Weight 91 kg Intake: Oral 1250 / 1250 Output: Urine 760 / 760 475 / 475 Other: # Bowel Movements 0 Narrative: GENERAL: Awake and alert talkative and cooperative very anxious SKIN: Warm and dry. HEAD: Atraumatic. Normocephalic. EYES: Pupils equal and round. No scleral icterus. No injection or drainage. EOMI ENT: No nasal bleeding or discharge. Mucous membranes pink and moist. Tongue is midline NECK: Trachea midline. No JVD. Supple CARDIOVASCULAR: IRRegular rate and rhythm. S1-S2 no S3 or S4 RESPIRATORY: No accessory muscle use. Clear to auscultation. Breath sounds equal bilaterally. GASTROINTESTINAL: Abdomen soft, non-tender, nondistended. Hepatic and splenic margins not palpable. MUSCULOSKELETAL: Extremities without clubbing, cyanosis, or edema. No obvious deformities. NEUROLOGICAL: Awake and alert. No obvious cranial nerve deficits. Motor grossly within normal limits. Five out of 5 muscle strength in the arms and legs. Normal speech. PSYCHIATRIC: Appropriate mood and affect; insight and judgment normal. Very anxious at this time Results - Labs CBC & Chem 7: 01/08/18 04:58 01/08/18 04:58 Laboratory Results - last 24 hr 01/07/18 01/07/18 01/07/18 03:54 11:52 15:36 WBC RBC Hgb Hct MCV MCH MCHC RDW Plt Count MPV Neut % (Auto) Lymph % (Auto) [place] % (Auto) Eos % (Auto) Baso % (Auto) Neut # (Auto) Lymph # (Auto) [place] # (Auto) Eos # (Auto) Baso # (Auto) WBC Differential Differential Comment Sodium Potassium Chloride Carbon Dioxide Anion Gap BUN Creatinine Estimated GFR POC Glucose 138 H 112 H Random Glucose Hemoglobin A1c 6.4 H Calcium Phosphorus Magnesium Total Bilirubin AST ALT Alkaline Phosphatase Total Protein Albumin Amylase Lipase 01/07/18 01/08/18 01/08/18 21:34 04:58 04:58 WBC 8.9 RBC 4.19 L Hgb 12.7 L Hct 37.7 L MCV 90.1 MCH 30.3 MCHC 33.6 RDW 14.9 Plt Count 173 MPV 8.4 Neut % (Auto) 76.6 H Lymph % (Auto) 10.1 [place] % (Auto) 9.6 H Eos % (Auto) 3.3 Baso % (Auto) 0.4 Neut # (Auto) 6.8 Lymph # (Auto) 0.9 L [place] # (Auto) 0.9 Eos # (Auto) 0.3 Baso # (Auto) 0.0 WBC Differential . Differential Comment Auto diff final Sodium 140 Potassium 3.4 L Chloride 103 Carbon Dioxide 26.4 Anion Gap 11 BUN 62 H Creatinine 8.69 H Estimated GFR 6 L POC Glucose 148 H Random Glucose 114 H Hemoglobin A1c Calcium 8.6 Phosphorus 4.2 Magnesium 2.5 Total Bilirubin 0.3 AST 56 H ALT 29 Alkaline Phosphatase 56 Total Protein 6.5 Albumin 2.7 L Amylase 51 Lipase 122 01/08/18 08:24 WBC RBC Hgb Hct MCV MCH MCHC RDW Plt Count MPV Neut % (Auto) Lymph % (Auto) [place] % (Auto) Eos % (Auto) Baso % (Auto) Neut # (Auto) Lymph # (Auto) [place] # (Auto) Eos # (Auto) Baso # (Auto) WBC Differential Differential Comment Sodium Potassium Chloride Carbon Dioxide Anion Gap BUN Creatinine Estimated GFR POC Glucose 111 H Random Glucose Hemoglobin A1c Calcium Phosphorus Magnesium Total Bilirubin AST ALT Alkaline Phosphatase Total Protein Albumin Amylase Lipase - Imaging Impressions Chest X-Ray 01/05/18 17:56 CONCLUSION: Mild basilar atelectasis. Heart size mildly prominent. No effusion or pneumothorax. - Procedures 01/05/[address]: [address] elevation myocardial infarction. 2. Cardiopulmonary arrest. 3. End-stage renal disease, on peritoneal dialysis. 4. Hypertension. 5. Hyperlipidemia. POSTPROCEDURE DIAGNOSES: 1. Successful percutaneous coronary intervention to the proximal circumflex using 1 Resolute drug-eluting stent. 2. Successful percutaneous coronary intervention to the proximal left anterior descending using 1 Resolute [place] drug-eluting stent. PROCEDURES PERFORMED: 1. Left heart catheterization via the right radial artery. 2. Successful percutaneous coronary intervention to the circumflex using a 2.5 x 34 Resolute [place] drug-eluting stent that was postdilated proximally with a 2.75 balloon. 3. Successful percutaneous coronary intervention to the mid LAD using a 3.0 x 22 Resolute [place] drug-eluting stent that was postdilated proximally with a 3.25 noncompliant balloon. INDICATION FOR PROCEDURE: In brief, the patient is a very pleasant gentleman who presented to the emergency room with new onset of chest pain and discomfort and subsequently had a cardiopulmonary arrest. After obtaining ROSC, the patient had evidence of ST elevation and subsequently we were identified, and the patient was transferred from [place]. Please see H and P for full details. DESCRIPTION OF PROCEDURE: After discussion of risks, benefits, and alternatives, the patient signed informed consent. He was brought to the catheterization suite in stable fasting nonsedated state. He was sterilely prepped and draped in the usual fashion, sedated with IV fentanyl and midazolam, 1% lidocaine solution was used for local anesthesia and we placed a 6-L[place]ian glide sheath into the right radial artery. A JR4 Dexterity catheter was used to engage the right coronary artery. Images were obtained after intracoronary contrast dye injection. This catheter was then exchanged for a JL3.5 catheter, which was used to engage the left main coronary artery. Images were obtained after intracoronary contrast dye injection. FINDINGS ON ANGIOGRAPHY: 1. Right coronary artery: The right coronary artery is a dominant vessel, which bifurcates into the posterior descending and posterolateral artery. There is a mild lesion in the mid RCA. The remainder of the vessel has minimal luminal irregularities. 2. Left main: The left main artery is a normal-caliber vessel that bifurcates into the left anterior descending artery and left circumflex artery. This vessel was angiographically free of significant disease. There are minimal luminal irregularities. 3. Left circumflex: The left circumflex is a moderate caliber vessel that gives rise to multiple obtuse marginal branches. The proximal circumflex has 100% occlusion. 4. Left anterior descending artery: The left anterior descending artery is a moderate caliber vessel that courses distally to wrap around the apex, giving rise to multiple diagonal arteries. The proximal portion of the left anterior descending artery has a severe stenosis. INTERVENTIONAL SUMMARY: We then proceeded with planned percutaneous coronary intervention. Using a 6-Lithuanian XB 3.5 guide, we engaged the left main coronary artery. A BMW wire was used to wire down the length of the vessel. We predilated with a 2.0 compliant balloon and subsequently there was flow down the circumflex. We then subsequently predilated with a 2.5 compliant balloon. This further increased the flow down the circumflex artery. We then placed a 2.5 x 34 Resolute [place] drug-eluting stent into the proximal circumflex at the bifurcation of the first OM and the ongoing circumflex artery. This was subsequently postdilated with a 2.75 noncompliant balloon proximally. The result showed JULIANN 3 flow, no evidence of dissection or perforation. We then redirected the BMW wire, repeated the angiography and side to post-dilate the distal segment with 2.5 noncompliant balloon. Final angiography of the circumflex showed JULIANN 3 flow and no evidence of dissection or perforation. ____ hotshot was given after introduction of nitroglycerin. We then turned our attention to the left anterior descending artery. The BMW wire was redirected down the left anterior descending artery. We predilated with a 2.5 compliant balloon. Subsequently, we placed a 3.0 x 22 Resolute [place] drug-eluting stent in the proximal LAD. This was postdilated with a 3.25 noncompliant balloon proximally. Final angiography revealed JULIANN 3 flow and no evidence of dissection or perforation. PROCEDURAL SUMMARY: 1. Successful percutaneous coronary intervention of the circumflex using a 2.5 x 34 Resolute [place] drug-eluting stent postdilated proximally with a 2.75 balloon. 2. Successful percutaneous coronary intervention to the proximal left anterior descending using a 3.0 x 22 Resolute [place] drug-eluting stent postdilated with a 3.25 noncompliant balloon proximally. PLAN: 1. The patient will be monitored in the intensive care unit for further hemodynamic stability. 2. The patient was given 180 mg of Brilinta and will continue aspirin 81 mg and Brilinta 90 mg p.o. b.i.d. for a minimum duration of 1 year. 3. We will increase the dose of Lipitor to 40 mg p.o. at bedtime. 4. We will continue the patient's [id number] beta theron. 5. We will obtain a transthoracic echocardiogram. Thank you for allowing me to participate in the care of Mr. Day. Please feel free to contact us with any further questions regarding his care. Darren Beyer MD Assessment and Plan - Plan Acute coronary syndrome -Status post V. fib arrest in the ED -Successful percutaneous intervention to circumflex and LAD -Management per cardiology, Dr. Beyer -Brilinta -Aspirin, atorvastatin -Amiodarone to treat V. fib End-stage renal disease -Continue peritoneal dialysis -Nephrology consultation Diabetes mellitus -Insulin sliding scale Anxiety will make some Ativan available Tobacco abuse will need NicoDerm patch available Increase activity A.m. labs DVT GI prophylaxis -Teds SCDs -Early aggressive mobilization -Subcu heparin -Pepcid TRY TO OBTAIN HOME MEDICATIONS MEDICATIONS ADJUSTED CLEARED BY CARDIOLOGY HYPOKALEMIA WILL REPLACE DC TO HOME TODAY Code Status: FULL CODE Discussed Condition With: RN AND PT AND CARDIOLOGY Discharge Planning: DC TO HOME TODAY
--- NOTE | 2018-01-08 09:54 | P.DS ---
Date of admission: 01/05/18 20:40 Primary care physician: UNKNOWN Attending physician on discharge: Terrence Galvez Anticipated date of discharge: 01/08/18 Brief History from admission: 01/05: 62-year-old male who presents to the emergency department via private vehicle for chest pain. The patient states he was eating earlier today , approximately 1 hour prior to arrival when he developed chest pain. The chest pain was substernal, moderate to severe, initially 10/10, then 8/10, and radiating to the upper extremities bilaterally as well as the back. The patient describes the pain as gripping, pressure, and heaviness. The patient also had nausea, vomiting, diaphoresis, and lightheadedness. He denied any shortness of breath. The patient denies any known history of coronary artery disease but does have a history of end-stage renal disease on peritoneal dialysis as well as hypertension, hyperlipidemia, tobacco use, and borderline diabetes. The patient states he has never had a cardiac catheterization or stress test in the past. He denies any exertional component to his symptoms. In the emergency department he suffered V. fib cardiac arrest and was successfully resuscitated with delivering of shock and amiodarone. Due to EKG changes suggestive ST elevations he was immediately taken to cardiac catheterization lab where he was found to have a critical LAD and circumflex occlusion that was treated with a stent. Postprocedure he is admitted to CVICU. 8/4: Resting comfortably in bed. Denies any shortness of breath. Not in any acute distress. 8-5 TRANSFERRED TO OUR SERVICE TODAY VERY ANXIOUS TODAY SP STENTING TO LAD AND CIRCUMFLEX WILL MAKE ATIVAN AVAILABLE AND NICODERM PATCH DW RN AND PT INCREASE ACTIVITY 8-6 medications have been adjusted by cardiology can be discharged home later today We will replace potassium Discharge to home today Discussed with cardiology yesterday and they were okay with him being discharged home today we will discharge to HOME TODAY DS: Diagnosis - Discharge Diagnosis (1) Arrhythmia, ventricular Status: Acute (2) Hypertension Status: Chronic (3) Peritoneal dialysis catheter in place Status: Chronic (4) Peritoneal dialysis status Status: Chronic (5) ST elevation myocardial infarction (STEMI) Status: Acute DS: Medications - Discharge Medications Prescriptions: amlodipine 5 mg PO DAILY #30 tab aspirin 81 mg PO DAILY #30 tab atorvastatin 40 mg PO HS #30 tab carvedilol [Coreg] 6.25 mg PO BID #60 tab furosemide [Lasix] 80 mg PO DAILY #30 tab nicotine 1 patch TRANSDERMAL DAILY #30 ea nitroglycerin 0.4 mg SUBLINGUAL Q5-15M PRN #100 tab PRN Reason: CHEST PAIN ticagrelor [Brilinta] 90 mg PO BID #60 tab DS: Summary Hospital Course: 01/05: 62-year-old male who presents to the emergency department via private vehicle for chest pain. The patient states he was eating earlier today , approximately 1 hour prior to arrival when he developed chest pain. The chest pain was substernal, moderate to severe, initially 10/10, then 8/10, and radiating to the upper extremities bilaterally as well as the back. The patient describes the pain as gripping, pressure, and heaviness. The patient also had nausea, vomiting, diaphoresis, and lightheadedness. He denied any shortness of breath. The patient denies any known history of coronary artery disease but does have a history of end-stage renal disease on peritoneal dialysis as well as hypertension, hyperlipidemia, tobacco use, and borderline diabetes. The patient states he has never had a cardiac catheterization or stress test in the past. He denies any exertional component to his symptoms. In the emergency department he suffered V. fib cardiac arrest and was successfully resuscitated with delivering of shock and amiodarone. Due to EKG changes suggestive ST elevations he was immediately taken to cardiac catheterization lab where he was found to have a critical LAD and circumflex occlusion that was treated with a stent. Postprocedure he is admitted to CVICU. 8/4: Resting comfortably in bed. Denies any shortness of breath. Not in any acute distress. 8-5 TRANSFERRED TO OUR SERVICE TODAY VERY ANXIOUS TODAY SP STENTING TO LAD AND CIRCUMFLEX WILL MAKE ATIVAN AVAILABLE AND NICODERM PATCH DW RN AND PT INCREASE ACTIVITY 8-6 medications have been adjusted by cardiology can be discharged home later today We will replace potassium Discharge to home today Discussed with cardiology yesterday and they were okay with him being discharged home today we will discharge to HOME TODAY MEDICATIONS ADJUSTED DC TO HOME TODAY FOLLOW UP PCP FOLLOW UP CARDIO FOLLOW UP NEPHRO - Time Spent with Patient Total time spent providing and/or coordinating discharge services: Greater than 30 minutes - Quality: VTE Deep Vein Thrombosis/Pulmonary Embolism Present on Admission: No Exam Vital signs: Vital Signs 01/07/18 11:00 01/07/18 15:00 01/07/18 17:13 Temperature 98.2 F 98.6 F Pulse Rate 62 68 Respiratory Rate 18 Blood Pressure 141/79 H 136/90 Pulse Oximetry 95 01/07/18 19:00 01/07/18 19:45 01/07/18 21:19 Temperature 98.3 F Pulse Rate 69 Respiratory Rate 12 Blood Pressure 140/95 H Pulse Oximetry 97 96 96 01/07/18 23:00 01/08/18 03:00 01/08/18 07:00 Temperature 98.3 F 97.8 F 97.8 F Pulse Rate 61 70 61 Respiratory Rate 18 16 16 Blood Pressure 111/65 92/51 L 145/91 H Pulse Oximetry 94 L 01/08/18 08:00 01/08/18 08:09 Temperature Pulse Rate Respiratory Rate Blood Pressure Pulse Oximetry 94 L 97 Intake & Output 01/07/18 01/08/18 01/08/18 18:59 06:59 18:59 Intake Total 1250 / 1250 Output Total 760 / 760 475 / 475 Balance 490 / 490 -475 / -475 Weight 91 kg Intake: Oral 1250 / 1250 Output: Urine 760 / 760 475 / 475 Other: # Bowel Movements 0 Narrative: GENERAL: Awake alert and oriented 3 talkative and cooperative SKIN: Warm and dry. HEAD: Atraumatic. Normocephalic. EYES: Pupils equal and round. No scleral icterus. No injection or drainage. ENT: No nasal bleeding or discharge. Mucous membranes pink and moist. NECK: Trachea midline. No JVD. CARDIOVASCULAR: Regular rate and rhythm. S1-S2 no S3 or S4 RESPIRATORY: No accessory muscle use. Clear to auscultation. Breath sounds equal bilaterally. GASTROINTESTINAL: Abdomen soft, non-tender, nondistended. Hepatic and splenic margins not palpable. Peritoneal catheter in place MUSCULOSKELETAL: Extremities without clubbing, cyanosis, or edema. No obvious deformities. NEUROLOGICAL: Awake and alert. No obvious cranial nerve deficits. Motor grossly within normal limits. Five out of 5 muscle strength in the arms and legs. Normal speech. PSYCHIATRIC: Appropriate mood and affect; insight and judgment normal. Results Procedures completed during hospitalization: 01/05/2018 PREPROCEDURE DIAGNOSES: 1. ST elevation myocardial infarction. 2. Cardiopulmonary arrest. 3. End-stage renal disease, on peritoneal dialysis. 4. Hypertension. 5. Hyperlipidemia. POSTPROCEDURE DIAGNOSES: 1. Successful percutaneous coronary intervention to the proximal circumflex using 1 Resolute drug-eluting stent. 2. Successful percutaneous coronary intervention to the proximal left anterior descending using 1 Resolute Ramirez drug-eluting stent. PROCEDURES PERFORMED: 1. Left heart catheterization via the right radial artery. 2. Successful percutaneous coronary intervention to the circumflex using a 2.5 x 34 Resolute [place] drug-eluting stent that was postdilated proximally with a 2.75 balloon. 3. Successful percutaneous coronary intervention to the mid LAD using a 3.0 x 22 Resolute Ramirez drug-eluting stent that was postdilated proximally with a 3.25 noncompliant balloon. INDICATION FOR PROCEDURE: In brief, the patient is a very pleasant gentleman who presented to the emergency room with new onset of chest pain and discomfort and subsequently had a cardiopulmonary arrest. After obtaining ROSC, the patient had evidence of ST elevation and subsequently we were identified, and the patient was transferred from [place]. Please see H and P for full details. DESCRIPTION OF PROCEDURE: After discussion of risks, benefits, and alternatives, the patient signed informed consent. He was brought to the catheterization suite in stable fasting nonsedated state. He was sterilely prepped and draped in the usual fashion, sedated with IV fentanyl and midazolam, 1% lidocaine solution was used for local anesthesia and we placed a 6-Iraqi glide sheath into the right radial artery. A JR4 Dexterity catheter was used to engage the right coronary artery. Images were obtained after intracoronary contrast dye injection. This catheter was then exchanged for a JL3.5 catheter, which was used to engage the left main coronary artery. Images were obtained after intracoronary contrast dye injection. FINDINGS ON ANGIOGRAPHY: 1. Right coronary artery: The right coronary artery is a dominant vessel, which bifurcates into the posterior descending and posterolateral artery. There is a mild lesion in the mid RCA. The remainder of the vessel has minimal luminal irregularities. 2. Left main: The left main artery is a normal-caliber vessel that bifurcates into the left anterior descending artery and left circumflex artery. This vessel was angiographically free of significant disease. There are minimal luminal irregularities. 3. Left circumflex: The left circumflex is a moderate caliber vessel that gives rise to multiple obtuse marginal branches. The proximal circumflex has 100% occlusion. 4. Left anterior descending artery: The left anterior descending artery is a moderate caliber vessel that courses distally to wrap around the apex, giving rise to multiple diagonal arteries. The proximal portion of the left anterior descending artery has a severe stenosis. INTERVENTIONAL SUMMARY: We then proceeded with planned percutaneous coronary intervention. Using a 6-Iraqi XB 3.5 guide, we engaged the left main coronary artery. A BMW wire was used to wire down the length of the vessel. We predilated with a 2.0 compliant balloon and subsequently there was flow down the circumflex. We then subsequently predilated with a 2.5 compliant balloon. This further increased the flow down the circumflex artery. We then placed a 2.5 x 34 Resolute Ramirez drug-eluting stent into the proximal circumflex at the bifurcation of the first OM and the ongoing circumflex artery. This was subsequently postdilated with a 2.75 noncompliant balloon proximally. The result showed JULIANN 3 flow, no evidence of dissection or perforation. We then redirected the BMW wire, repeated the angiography and side to post-dilate the distal segment with 2.5 noncompliant balloon. Final angiography of the circumflex showed JULIANN 3 flow and no evidence of dissection or perforation. ____ hotshot was given after introduction of nitroglycerin. We then turned our attention to the left anterior descending artery. The BMW wire was redirected down the left anterior descending artery. We predilated with a 2.5 compliant balloon. Subsequently, we placed a 3.0 x 22 Resolute Ramirez drug-eluting stent in the proximal LAD. This was postdilated with a 3.25 noncompliant balloon proximally. Final angiography revealed JULIANN 3 flow and no evidence of dissection or perforation. PROCEDURAL SUMMARY: 1. Successful percutaneous coronary intervention of the circumflex using a 2.5 x 34 Resolute [place] drug-eluting stent postdilated proximally with a 2.75 balloon. 2. Successful percutaneous coronary intervention to the proximal left anterior descending using a 3.0 x 22 Resolute Ramirez drug-eluting stent postdilated with a 3.25 noncompliant balloon proximally. PLAN: 1. The patient will be monitored in the intensive care unit for further hemodynamic stability. 2. The patient was given 180 mg of Brilinta and will continue aspirin 81 mg and Brilinta 90 mg p.o. b.i.d. for a minimum duration of 1 year. 3. We will increase the dose of Lipitor to 40 mg p.o. at bedtime. 4. We will continue the patient's [id number] beta theron. 5. We will obtain a transthoracic echocardiogram. Thank you for allowing me to participate in the care of Mr. aDy. Please feel free to contact us with any further questions regarding his care. Darren Beyer MD Completed studies during hospitalization: Laboratory Results CBC w Diff Auto diff final 01/05/18 17:45 WBC 8.9 th/mm3 (4.0-11.0) 01/08/18 04:58 RBC 4.19 mil/mm3 (4.50-5.90) L 01/08/18 04:58 Hgb 12.7 gm/dL (13.0-17.0) L 01/08/18 04:58 Hct 37.7 % (39.0-51.0) L 01/08/18 04:58 MCV 90.1 fL (80.0-100.0) 01/08/18 04:58 MCH 30.3 pg (27.0-34.0) 01/08/18 04:58 MCHC 33.6 % (32.0-36.0) 01/08/18 04:58 RDW 14.9 % (11.6-17.2) 01/08/18 04:58 Plt Count 173 th/mm3 (150-450) 01/08/18 04:58 MPV 8.4 fL (7.0-11.0) 01/08/18 04:58 Neut % (Auto) 76.6 % (16.0-70.0) H 01/08/18 04:58 Lymph % (Auto) 10.1 % (9.0-44.0) 01/08/18 04:58 Bond % (Auto) 9.6 % (0.0-8.0) H 01/08/18 04:58 Eos % (Auto) 3.3 % (0.0-4.0) 01/08/18 04:58 Baso % (Auto) 0.4 % (0.0-2.0) 01/08/18 04:58 Neut # (Auto) 6.8 th/mm3 (1.8-7.7) 01/08/18 04:58 Lymph # (Auto) 0.9 th/mm3 (1.0-4.8) L 01/08/18 04:58 Bond # (Auto) 0.9 th/mm3 (0.0-0.9) 01/08/18 04:58 Eos # (Auto) 0.3 th/mm3 (0.0-0.4) 01/08/18 04:58 Baso # (Auto) 0.0 th/mm3 (0.0-0.2) 01/08/18 04:58 WBC Differential . 01/08/18 04:58 Differential Comment Auto diff final 01/08/18 04:58 PT 10.3 sec (9.8-11.6) 01/07/18 03:54 INR 1.0 Ratio 01/07/18 03:54 APTT 27.7 sec (24.3-30.1) 01/05/18 17:45 Puncture Site Ac 01/05/18 18:05 Patient Temperature 98.6 01/05/18 18:05 VBG pH 7.27 (7.360-7.400) L* 01/05/18 18:05 VBG pCO2 49 mmHG (44-48) H 01/05/18 18:05 VBG pO2 46 mmHG (35-40) H 01/05/18 18:05 VBG HCO3 22 mmol/L (22-26) 01/05/18 18:05 VBG O2 Saturation 74 % (70-76) 01/05/18 18:05 VBG O2 Content 15.4 Vol % (9.0-17.0) 01/05/18 18:05 VBG Base Excess -4.2 mmol/L (-2-2) L 01/05/18 18:05 VBG Carboxyhemoglobin 2.4 % (0-4) 01/05/18 18:05 VBG Methemoglobin 1.5 % (0-2) 01/05/18 18:05 Hemoglobin 14.9 G/DL (12.0-16.0) 01/05/18 18:05 O2 Delivery Device Non rebreather 01/05/18 18:05 Inspired O2 100 % 01/05/18 18:05 Critical Value Yes 01/05/18 18:05 Sodium 140 meq/L (136-145) 01/08/18 04:58 Potassium 3.4 meq/L (3.5-5.1) L 01/08/18 04:58 Chloride 103 meq/L (98-107) 01/08/18 04:58 Carbon Dioxide 26.4 meq/L (21.0-32.0) 01/08/18 04:58 Anion Gap 11 meq/L (5-15) 01/08/18 04:58 BUN 62 mg/dL (7-18) H 01/08/18 04:58 Creatinine 8.69 mg/dL (0.60-1.30) H 01/08/18 04:58 Estimated GFR 6 mL/min (>89) L 01/08/18 04:58 POC Glucose 111 mg/dl (68-110) H 01/08/18 08:24 Random Glucose 114 mg/dL (74-106) H 01/08/18 04:58 Hemoglobin A1c 6.4 % (4.3-6.0) H 01/07/18 03:54 Calcium 8.6 mg/dL (8.5-10.1) 01/08/18 04:58 Phosphorus 4.2 mg/dL (2.5-4.9) 01/08/18 04:58 Magnesium 2.5 mg/dL (1.5-2.5) 01/08/18 04:58 Total Bilirubin 0.3 mg/dL (0.2-1.0) 01/08/18 04:58 AST 56 U/L (15-37) H 01/08/18 04:58 ALT 29 U/L (12-78) 01/08/18 04:58 Alkaline Phosphatase 56 U/L (45-117) 01/08/18 04:58 Total Creatine Kinase 202 U/L (39-308) 01/05/18 17:45 CK-MB (CK-2) 6.4 ng/mL (0.5-3.6) H 01/05/18 17:45 Troponin I 0.10 ng/mL (0.02-0.05) H 01/05/18 17:45 Total Protein 6.5 g/dL (6.4-8.2) 01/08/18 04:58 Albumin 2.7 g/dL (3.4-5.0) L 01/08/18 04:58 Triglycerides 127 mg/dL (42-150) 01/07/18 03:54 Cholesterol 142 mg/dL (120-200) 01/07/18 03:54 LDL Cholesterol, Calc 83 mg/dL (0-99) 01/07/18 03:54 HDL Cholesterol 33.9 mg/dL (40.0-60.0) L 01/07/18 03:54 Cholesterol/HDL Ratio 4.18 Ratio 01/07/18 03:54 Amylase 51 U/L (25-115) 01/08/18 04:58 Lipase 122 U/L (73-393) 01/08/18 04:58 TSH 0.251 uIU/mL (0.358-3.740) L 01/07/18 03:54 Free T4 0.75 ng/dL (0.76-1.46) L 01/07/18 03:54 Nasal Screen MRSA (PCR) Not detected (Negative) 01/06/18 08:04 Impressions Chest X-Ray 01/05/18 17:56 CONCLUSION: Mild basilar atelectasis. Heart size mildly prominent. No effusion or pneumothorax. Labs on day of discharge: Labs from last 24 hours 01/08/18 01/08/18 01/08/18 08:24 04:58 04:58 WBC 8.9 RBC 4.19 L Hgb 12.7 L Hct 37.7 L MCV 90.1 MCH 30.3 MCHC 33.6 RDW 14.9 Plt Count 173 MPV 8.4 Neut % (Auto) 76.6 H Lymph % (Auto) 10.1 Bond % (Auto) 9.6 H Eos % (Auto) 3.3 Baso % (Auto) 0.4 Neut # (Auto) 6.8 Lymph # (Auto) 0.9 L Bond # (Auto) 0.9 Eos # (Auto) 0.3 Baso # (Auto) 0.0 WBC Differential . Differential Comment Auto diff final Sodium 140 Potassium 3.4 L Chloride 103 Carbon Dioxide 26.4 Anion Gap 11 BUN 62 H Creatinine 8.69 H Estimated GFR 6 L POC Glucose 111 H Random Glucose 114 H Hemoglobin A1c Calcium 8.6 Phosphorus 4.2 Magnesium 2.5 Total Bilirubin 0.3 AST 56 H ALT 29 Alkaline Phosphatase 56 Total Protein 6.5 Albumin 2.7 L Amylase 51 Lipase 122 01/07/18 01/07/18 01/07/18 21:34 15:36 11:52 WBC RBC Hgb Hct MCV MCH MCHC RDW Plt Count MPV Neut % (Auto) Lymph % (Auto) Bond % (Auto) Eos % (Auto) Baso % (Auto) Neut # (Auto) Lymph # (Auto) Bond # (Auto) Eos # (Auto) Baso # (Auto) WBC Differential Differential Comment Sodium Potassium Chloride Carbon Dioxide Anion Gap BUN Creatinine Estimated GFR POC Glucose 148 H 112 H 138 H Random Glucose Hemoglobin A1c Calcium Phosphorus Magnesium Total Bilirubin AST ALT Alkaline Phosphatase Total Protein Albumin Amylase Lipase 01/07/18 03:54 WBC RBC Hgb Hct MCV MCH MCHC RDW Plt Count MPV Neut % (Auto) Lymph % (Auto) Bond % (Auto) Eos % (Auto) Baso % (Auto) Neut # (Auto) Lymph # (Auto) Bond # (Auto) Eos # (Auto) Baso # (Auto) WBC Differential Differential Comment Sodium Potassium Chloride Carbon Dioxide Anion Gap BUN Creatinine Estimated GFR POC Glucose Random Glucose Hemoglobin A1c 6.4 H Calcium Phosphorus Magnesium Total Bilirubin AST ALT Alkaline Phosphatase Total Protein Albumin Amylase Lipase - Impressions ITS Impressions Chest X-Ray 01/05/18 17:56 CONCLUSION: Mild basilar atelectasis. Heart size mildly prominent. No effusion or pneumothorax. Discharge Plan - Discharge Disposition Patient Disposition: 01 Discharge Home - Discharge Condition Condition: Good - Discharge Order Discharge Orders: Discharge Order (Routine); Ordered 01/08/18 Ordered By: Terrence Galvez - Discharge Details Anticipated Discharge Date: 01/08/18 Discharge Comment: DC TO HOME - Physicians Team Primary Care Provider: UNKNOWN, Attending Provider: Terrence Galvez Other Providers: Terrence Galvez, DO
[2018-01-08] MEDS ORDERED: Potassium Bicarbonate 25 MEQ Effervescent Tablet PO ONE (11:00)
--- NOTE | 2018-01-09 07:53 | ECG ---
Date Performed: 01/07/2018 Time Performed: 11:53:54 PTAGE: 62 years EKG: Sinus rhythm with borderline 1st degree A-V block. Left axis deviation Inferior infarct - age undetermined Abnorm al ECG PREVIOUS TRACING : 01/05/2018 18.00 DOCTOR: Dave Perea Interpretating Date/Time 01/09/2018 07:44:45
== END 2018-01-08 16:00 | disposition home or self-care (01) ==
LOC: PHED 17:35 → HCVI 18:20 → PHED 18:20 → HCVI 20:40
PROVIDERS: ADMIT Hospitalist; ATTEND Hospitalist